=== PATIENT | female | born 1960 | race Caucasian/White ===

== ENCOUNTER → 2017-10-15 | Day surgery (SDC) | payer OTHER ==
[~2017-10-15] MED LIST: BELLADONNA/OPIUM 60 MG SUPP PR ONE; CEFTRIAXONE SOD 1 GM VIAL ONE; DEXAMETHASONE SOD PHOS INJ 4 MG/ML VIAL ONE; DOCUSATE SODIU100 MG PO; FAMOTIDINE20 MG PO; FENTANYL CITRATE/PF 100MCG/2 ML INJ ONE; FERROUS SULFAT325 MG PO; FOLIC ACID1 MG PO; GENTAMICIN 80MG/NS IV ONE; IOPAMIDOL 610MG/1ML 300 MG/ML VIAL IV ONE; LIDOCAINE HCL 2% LOCAL INJ 5 ML SDV VIAL INJ ONE; MIDAZOLAM HCL 2 MG/2 ML VIAL ONE; ONDANSETRON HCL INJ 2 MG/ML VIAL ONE; POTASSIUM CHLO10 ME1 PO; PROPOFOL IV EMULSION 10 MG/ML 20 ML VIAL ONE; SERTRALINE HCL50 MG PO; SEVOFLURANE INHAL SOLN 250 ML PEN BTL ONE; TRAZODONE HCL50 MG PO; VITAMIN B-121000 MCG IM; VITAMIN B-121000 MCG PO; VITAMIN C500 MG PO; VITAMIN D32000 UNI1 PO
[2017-10-15 10:57] LABS: BASOPHILS % 0.6 % (0.0-1.0); EOSINOPHILS # (AUTO) 0.3 (0.0-0.4); HEMATOCRIT 40.7 % (34.2-44.1); HEMOGLOBIN 13.6 g/dL (12.0-16.0); LYMPHOCYTES # (AUTO) 1.1 (1.0-3.2); LYMPHOCYTES % 17.3 % (18.0-39.1); MEAN CORPUSCULAR HGB CONC 33.4 g/dL (31-35); MEAN CORPUSCULAR VOLUME 92.7 fL (81-99); MONOCYTES # (AUTO) 0.6 (0.2-0.8); MONOCYTES % 9.1 % (4.4-11.3); NEUTROPHILS # (AUTO) 4.4 (2.1-6.9); NEUTROPHILS % 68.7 % (38.7-80.0); PLATELET COUNT 296 x10e3/uL (140-360); RED BLOOD COUNT 4.39 x10e6/uL (3.6-5.1); RED CELL DISTRIBUTION WIDTH 14.1 % (11.7-14.4)
[2017-10-15 11:16] LABS: ALANINE AMINOTRANSFERASE 12 IU/L (0-55); ALBUMIN 3.4 g/dL (3.5-5.0); ALBUMIN/GLOBULIN RATIO 1.1 (0.8-2.0); ALKALINE PHOSPHATASE 93 IU/L (40-150); ANION GAP 12.8 mmol/L (8-16); BLOOD UREA NITROGEN 19 mg/dL (7-26); BUN/CREATININE RATIO 27 (6-25); CARBON DIOXIDE 25 mmol/L (22-29); CHLORIDE 109 mmol/L (98-107); CREATININE, SERUM 0.71 mg/dL (0.57-1.11); EST GLOMERULAR FILTRATION RATE > 60 ML/MIN (60-); GLUCOSE 88 mg/dL (74-118); POTASSIUM 3.8 mmol/L (3.5-5.1); SODIUM 143 mmol/L (136-145)
--- NOTE | 2017-11-20 05:03 | Operative Report ---
DATE OF PROCEDURE: October 15, 2017 PREOPERATIVE DIAGNOSES 1. Left ureterolithiasis. 2. Left nephrolithiasis. 3. Left indwelling ureteral stent. POSTOPERATIVE DIAGNOSES 1. Left ureterolithiasis. 2. Left nephrolithiasis. 3. Left indwelling ureteral stent. 4. Grade 2 cystocele. 5. Grade 2 rectocele. 6. Urethral hypermobility. 7. Atrophic (senile) vaginitis. OPERATIONS PERFORMED: Note these are all staged procedures as part of a multistage, multistep process of managing the patient's urolithiasis. 1. Cystourethroscopy with complicated removal of left indwelling ureteral stent (separate procedure performed with separate scope for the diagnosis of the stent). 2. Left ureteroscopy with stone manipulation (separate procedure performed for the ureteral stone). 3. Left ureteroscopy with stone manipulation (separate procedure performed for the renal stones). 4. Radiological services for supervision and interpretation of ureteroscopy. 5. Interpretation of retrograde ureteropyelography. 6. Supervision of fluoroscopy. No radiologist present. 7. Pelvic examination under anesthesia. ANESTHESIA: General. COMPLICATIONS: None. CLINICAL SUMMARY: Dejah Epstein is a 57-year-old woman with nephrolithiasis. She underwent ESWL and stent placement. She is brought to the operating room for the above procedures. She is aware of the risks of bleeding, infection, injury to adjacent structures, need for additional procedures, and elected to proceed. OPERATIVE PROCEDURE IN DETAIL: Informed consent was verified. Dejah Epstein was properly identified and taken to the operating room and placed on the cystoscopy table in the supine position. Anesthesia was uneventfully begun. The patient was then carefully and gently repositioned in the dorsal lithotomy position with all pressure points well-padded. Her genitalia were prepared and draped in the usual sterile fashion. The 22.5-Polish cystoscope sheath with the obturator in place was atraumatically inserted in the patient's urethra and the bladder was drained. Panendoscopy of the urinary bladder revealed no suspicious mucosal lesions. No tumors. No stones and no diverticula. The patient's stent was noted to be emerging from the left ureteral orifice and was somewhat encrusted. A guidewire was then placed along side the stent and guided to the level of the patient's kidneys. The stent was then grasped, completed removed and discarded. A semi-rigid ureteroscope was then placed along side the guidewire up into the left ureter where I identified a stone. The stone was grasped with a Nitinol tipless basket and extracted. Flexible ureteroscope was then placed over the guidewire and guided to the level of the patient's kidney. We identified stones within the kidney. A large piece of stone was grasped with the Nitinol tipless basket and atraumatically extracted. We reinserted the ureteroscope over a guidewire and performed additional ureteroscopy to make sure the patient did not have any significantly sized stones remaining. There were no suspicious lesions. There were no tumors. There were no ureteral strictures. Interpretation of retrograde ureteropyelography. Contrast was instilled in a retrograde fashion on the left hand side. There was chronic appearing fullness of the collecting system on the left hand side as one would anticipate with a stent in place. There was no extravasation. Some caliceal blunting was appreciated. Unobstructed drainage was observed fluoroscopically. The patient's bladder was then drained. Cystoscope was withdrawn. Pelvic examination under anesthesia revealed a grade 2 cystocele, grade 2 rectocele, urethral hypermobility was noted and atrophic (senile) vaginitis was also noted. The patient was uneventfully reversed from anesthesia and taken to the recovery room in stable condition. Explicit postoperative instructions were given. Will follow the patient up in the office. Job#: [id number]
== END | disposition home or self-care (01) ==
LOC: OR 10:09
PROVIDERS: ATTEND Urology
DX: N20.1 Calculus of ureter (principal); N20.0 Calculus of kidney; N35.9 Urethral stricture, unspecified; Z46.6 Encounter for fitting and adjustment of urinary device; Z96.0 Presence of urogenital implants; N39.46 Mixed incontinence; N32.81 Overactive bladder; N36.41 Hypermobility of urethra; N81.10 Cystocele, unspecified; N81.6 Rectocele; N95.2 Postmenopausal atrophic vaginitis; K25.9 Gastric ulcer, unspecified as acute or chronic, without hemorrhage or perforation; I45.10 Unspecified right bundle-branch block; G47.33 Obstructive sleep apnea (adult) (pediatric); I83.90 Asymptomatic varicose veins of unspecified lower extremity; E66.9 Obesity, unspecified; D64.9 Anemia, unspecified; F41.9 Anxiety disorder, unspecified; Z68.35 Body mass index [BMI] 35.0-35.9, adult; Z87.891 Personal history of nicotine dependence; Z84.1 Family history of disorders of kidney and ureter
CPT/HCPCS: 36415; 52352; 74420; 80053; 83970; 84550; 85025; 87086; 87186; 88300; J0696; J1100; J1580; J2001; J2250; J2405; Q9967

== ENCOUNTER → 2018-02-16 | Outpatient (CLI) | payer OTHER ==
[~2018-02-16] MED LIST changes: -BELLADONNA/OPIUM 60 MG SUPP PR ONE; -CEFTRIAXONE SOD 1 GM VIAL ONE; -DEXAMETHASONE SOD PHOS INJ 4 MG/ML VIAL ONE; -FENTANYL CITRATE/PF 100MCG/2 ML INJ ONE; -GENTAMICIN 80MG/NS IV ONE; -IOPAMIDOL 610MG/1ML 300 MG/ML VIAL IV ONE; -LIDOCAINE HCL 2% LOCAL INJ 5 ML SDV VIAL INJ ONE; -MIDAZOLAM HCL 2 MG/2 ML VIAL ONE; -ONDANSETRON HCL INJ 2 MG/ML VIAL ONE; -PROPOFOL IV EMULSION 10 MG/ML 20 ML VIAL ONE; -SEVOFLURANE INHAL SOLN 250 ML PEN BTL ONE
--- NOTE | 2018-02-16 14:54 | Diagnostic Imaging Report ---
PROCEDURE:X-RAY ABDOMEN - KUB COMPARISON:CT 07/16/2017, KUB 08/29/2017 INDICATIONS:FOLLOW UP KIDNEY STONES FINDINGS: A punctate 0.2 cm calcification overlies the mid aspect of the left renal silhouette. The previous 1.1 cm triangular shaped calculus is currently not well visualized. There are no calcifications projected over the expected course of the ureters or bladder. Stable phleboliths in the pelvis. There is a non-obstructed bowel-gas pattern. There are no acute osseous abnormalities. Sutures project over the epigastric region related to gastric bypass. Surgical clips project over the right upper quadrant. CONCLUSION: Punctate 0.2 cm calcification projecting over the left kidney likely represents a renal calculus. Dictated by: Gab Yap M.D. on 02/16/2018 at 14:55 Electronically approved by: Gab Yap M.D. on 02/16/2018 at 14:55
== END ==
LOC: RAD 14:06
PROVIDERS: ATTEND Urology
DX: N20.0 Calculus of kidney (principal)
CPT/HCPCS: 74018

== ENCOUNTER → 2018-08-25 | Outpatient (CLI) | payer OTHER ==
--- NOTE | 2018-08-25 13:41 | Diagnostic Imaging Report ---
EXAM: Abdomen 2 Views INDICATION: Renal calculus COMPARISON: KUB and renal ultrasound 06/18/17. FINDINGS: There is a 1.1 cm calcification overlying the left mid pole kidney. Three calcifications measuring 3 mm each project over the left upper, mid, and lower pole kidney. Bowel gas obscures visualization of the right kidney. No definite stone overlying the expected location of the ureters. Surgical clips project over the right upper quadrant. Non-obstructive bowel gas pattern. Moderate degenerative changes of the lumbar spine and pelvis. Levoconvex curvature of the lumbar spine. IMPRESSION: A 1.1 cm calcification overlying the left mid pole kidney, consistent with known stone. Additional 3 mm left renal stones. Signed by: Dr. Davis Bullard MD on 08/25/2018 1:38 PM
== END ==
LOC: RAD 12:49
PROVIDERS: ATTEND Urology
DX: N20.0 Calculus of kidney (principal)
CPT/HCPCS: 74018

== ENCOUNTER → 2019-04-14 | Outpatient (CLI) | payer OTHER ==
--- NOTE | 2019-04-14 17:17 | Diagnostic Imaging Report ---
Abdomen, 2 views. History: History of renal stones. Findings: Clips in the right upper quadrant of the abdomen. The intestinal gas pattern is nonobstructive. There no masses or abnormal calcifications. There is a large amount of fecal material within the colon which obscures detail involving the kidneys. Extensive degenerative change of the spine with disc space narrowing, osteophytosis and scoliosis. Transitional L6 vertebral body. IMPRESSION: No acute abdominal abnormality. No definite calcified ureteral or renal stones. Signed by: Dr. Isac Taylor DO on 04/14/2019 5:14 PM
== END ==
LOC: RAD 15:51
PROVIDERS: ATTEND Urology
DX: N20.0 Calculus of kidney (principal)
CPT/HCPCS: 74018

== ENCOUNTER → 2019-05-07 | Outpatient (CLI) | payer OTHER ==
[~2019-05-07] MED LIST changes: +HYDROCHLOROTH12.5 MG PO; +PRILOSEC10 M1 PO
--- NOTE | 2019-05-07 14:54 | Diagnostic Imaging Report ---
PROCEDURE: CT ABDOMEN AND PELVIS WITHOUT CONTRAST TECHNIQUE: The abdomen and pelvis were scanned utilizing a multidetector helical scanner from the diaphragm to the lesser trochanter. No oral or intravenous contrast was administered per renal stone protocol. Coronal and sagittal multiplanar reformations were obtained. COMPARISON: 07/16/2017 INDICATIONS: LEFT FLANK PAIN, HX RENAL STONES FINDINGS: ABSENCE OF INTRAVENOUS CONTRAST DECREASES SENSITIVITY FOR DETECTION OF FOCAL LESIONS AND VASCULAR PATHOLOGY. LOWER THORAX: Subsegmental atelectasis in the dependent lower lobes. No pleural or pericardial effusion. HEPATOBILIARY: No focal hepatic lesion. Mild intrahepatic biliary dilatation status post cholecystectomy. SPLEEN: No splenomegaly. PANCREAS: No focal masses or ductal dilatation. ADRENALS: No adrenal nodules. KIDNEYS/URETERS: Interval development of marked left hydronephrosis and hydroureter G-tube migration of a 0.7 cm calculus from the upper collecting system to the ureterovesical junction as seen on series 3 image 155. 3-4 mm left upper pole and punctate left interpolar calculi are unchanged. A residual 7 mm calculus remains in the left lower pole collecting system as seen on series 3 image 79. No right renal or ureteral calculi. PELVIC ORGANS/BLADDER: Urinary bladder is unremarkable. Calcified, degenerated fibroid at the uterine fundus. No adnexal mass. PERITONEUM / RETROPERITONEUM: No ascites or pneumoperitoneum. LYMPH NODES: No pelvic sidewall, retroperitoneal, or mesenteric lymphadenopathy. VESSELS: Limited evaluation without intravenous contrast. The abdominal aorta is non-aneurysmal. GI TRACT: The large bowel is notable for innumerable sigmoid and descending colon diverticula without wall thickening or adjacent inflammatory change. The appendix is normal. Postsurgical changes of gastric bypass. No findings of small bowel obstruction. BONES AND SOFT TISSUES: Postsurgical changes related to mesh repair of ventral abdominal wall hernia, without recurrence or residual hernia defect. No additional focal soft tissue abnormalities. No osseous destructive lesions. Multilevel degenerative disc changes of the lumbar spine. IMPRESSION: Interval migration of a 7 mm left renal calculus from the upper collecting system to the ureterovesical junction, resulting in severe hydroureteronephrosis. Additional nonobstructing left renal calculi as above. Interval cholecystectomy with mild biliary dilatation likely related to reservoir effect. Correlate with serum bilirubin. Additional findings include large bowel diverticulosis without evidence of diverticulitis and atherosclerotic vascular disease. Dictated by: Seymour Pichardo M.D. on 05/07/2019 at 14:57 Electronically approved by: Seymour Pichardo M.D. on 05/07/2019 at 14:57
== END ==
LOC: CT 13:21
PROVIDERS: ATTEND Urology
DX: N20.0 Calculus of kidney (principal)
CPT/HCPCS: 74176

== ENCOUNTER → 2019-05-29 | Day surgery (SDC) | payer OTHER ==
[2019-05-25 15:55] LABS: BASOPHILS # (AUTO) 0.1 (0.0-0.1); BASOPHILS % 0.8 % (0.0-1.0); EOSINOPHILS # (AUTO) 0.3 (0.0-0.4); EOSINOPHILS % 3.9 % (0.0-6.0); HEMATOCRIT 41.2 % (34.2-44.1); HEMOGLOBIN 13.3 g/dL (12.0-16.0); LYMPHOCYTES # (AUTO) 1.5 (1.0-3.2); MEAN CORPUSCULAR HEMOGLOBIN 30.6 pg (28-32); MEAN CORPUSCULAR HGB CONC 32.3 g/dL (31-35); MEAN CORPUSCULAR VOLUME 94.9 fL (81-99); MONOCYTES # (AUTO) 0.4 (0.2-0.8); MONOCYTES % 6.2 % (4.4-11.3); NEUTROPHILS # (AUTO) 4.2 (2.1-6.9); NEUTROPHILS % 65.8 % (38.7-80.0); PLATELET COUNT 252 x10e3/uL (140-360); RED BLOOD COUNT 4.34 x10e6/uL (3.6-5.1); RED CELL DISTRIBUTION WIDTH 14.5 % (11.7-14.4)
[2019-05-25 16:15] LABS: ALANINE AMINOTRANSFERASE 12 IU/L (0-55); ALBUMIN 3.5 g/dL (3.5-5.0); ALBUMIN/GLOBULIN RATIO 1.2 (0.8-2.0); ALKALINE PHOSPHATASE 86 IU/L (40-150); ANION GAP 12.1 mmol/L (8-16); BLOOD UREA NITROGEN 18 mg/dL (7-26); BUN/CREATININE RATIO 22 (6-25); CALCIUM 9.5 mg/dL (8.4-10.2); CARBON DIOXIDE 28 mmol/L (22-29); CHLORIDE 104 mmol/L (98-107); CREATININE, SERUM 0.83 mg/dL (0.57-1.11); EST GLOMERULAR FILTRATION RATE > 60 ML/MIN (60-); GLUCOSE 119 mg/dL (74-118); POTASSIUM 4.1 mmol/L (3.5-5.1); SODIUM 140 mmol/L (136-145)
--- NOTE | 2019-05-25 16:40 | Diagnostic Imaging Report ---
EXAMINATION: CHEST 2 VIEWS INDICATION: Pre-operative COMPARISON: None FINDINGS: TUBES and LINES: None. LUNGS: The lungs are well-inflated. No focal consolidation or pulmonary edema. Linear subsegmental atelectasis at the left lung base. PLEURA: No pleural effusion or pneumothorax. HEART AND MEDIASTINUM: The cardiomediastinal silhouette is normal in size and contour. BONES AND SOFT TISSUES: No acute fracture or dislocation. UPPER ABDOMEN: No free air under the diaphragm. IMPRESSION: No focal pneumonia or pulmonary edema. Signed by: Rehan Green MD on 05/25/2019 4:36 PM
[~2019-05-29] MED LIST changes: +B&O 60MG R/S 60 MG SUPP PR ONE; +CEFTRIAXONE SOD 1 GM/NS 50 ML 50 ML IV ONE; +DEXAMETHASONE SOD PHOS INJ 4 MG/ML VIAL ONE; +FENTANYL CITRATE/PF 100MCG/2 ML INJ ONE; +IOPAMIDOL 610MG/1ML 300 MG/ML VIAL IV ONE; +LIDOCAINE HCL 2% LOCAL INJ 5 ML SDV VIAL INJ ONE; +METOCLOPRAMIDE HCL 10 MG/2ML VIAL ONE; +MIDAZOLAM HCL 2 MG/2 ML VIAL ONE; +ONDANSETRON HCL INJ 2MG/ML 2ML 2 MG/ML VIAL ONE; +PROMETHAZINE HCL (IM) 25 MG/ML VIAL ONE; +PROPOFOL IV EMULSION 10 MG/ML 20 ML VIAL ONE; +SEVOFLURANE INHAL SOLN 250 ML PEN BTL ONE
--- NOTE | 2019-05-29 09:09 | Diagnostic Imaging Report ---
Exam: CT abdomen/pelvis 05/07/2019. Clinical History: Preoperative, cystoscopy. Comparison: CT abdomen/pelvis 05/07/2019. Findings: Bowel gas partially obscures visualization of the kidneys. Multiple left-sided renal calculi are better characterized on CT from 05/07/2019. There is a 4 mm calcification projecting over the left upper kidney. Multiple pelvic calcifications likely represent phleboliths. Nonobstructive bowel gas pattern. Moderate amount of stool in the colon. Surgical clips project over the right upper quadrant. No acute osseous abnormality. Impression: Bowel gas partially appears visualization of the kidneys. Multiple left-sided renal calculi are better characterized on prior CT. Signed by: Dr. Davis Bullard MD on 05/29/2019 9:05 AM
--- OUTSIDE RECORDS SUMMARY | 2019-05-29 10:42 | XMS REPORT ---
Author Author [facility] Address Unknown Phone Unavailable Care Team Providers Care Home Health Clinical Liaison Name Role Phone PATRICA HUBBARD Unavailable Unavailable Problems This patient has no known problems. Allergies, Adverse Reactions, Alerts This patient has no known allergies or adverse reactions. Medications This patient has no known medications. Results Test Description Test Time Test Comments Text Results Atomic Results Result Comments ABDOMEN-1VIEW ([facility]) 2019-05-29 09:02:00 [place] [address] Patient Name: LINDY GABRIEL MR #: [id number] : 1960 Age/Sex: 59/F Req #: [id number] Adm Physician: Ordered by: PATRICA HUBBARD MD Report #: [id number] Location: OR Room/Bed: Procedure: [id number] DX/ABDOMEN-1VIEW ([facility]) Exam Date: 05/29/19 Exam Time: 0839 REPORT STATUS: Signed Exam: CT abdomen/pelvis 05/07/2019. Clinical History: Preoperative, cystoscopy. Comparison: CT abdomen/pelvis 05/07/2019. Findings: Bowel gas partially obscures visualization of the kidneys. Multiple left-sided renal calculi are better characterized on CT from 05/07/2019. There is a 4 mm calcification projecting over the left upper kidney. Multiple pelvic calcifications likely represent phleboliths. Nonobstructive bowel gas pattern. Moderate amount of stool in the colon. Surgical clips project over the right upper quadrant. No acute osseous abnormality. Impression: Bowel gas partially appears visualization of the kidneys. Multiple left-sided renal calculi are better characterized on prior CT. Signed by: Dr. Ana Camacho MD on 05/29/2019 9:05 AM Dictated By: ANA CAMACHO MD 4 Transcribed By: NICK on 05/29/19904 COPY TO: PATRICA HUBBARD MD CHEST 2 VIEWS 2019-05-25 16:35:00 [place] [address] Patient Name: LINDY GABRIEL MR #: [id number] : 1960 Age/Sex: 59/F Req #: [id number] Adm Physician: Ordered by: PATRICA HUBBARD MD Report #: [id number] Location: OR Room/Bed: Procedure: [id number] DX/CHEST 2 VIEWS Exam Date: 05/25/19 Exam Time: 1540 REPORT STATUS: Signed EXAMINATION: CHEST 2 VIEWS INDICATION: Pre-operative COMPARISON: None FINDINGS: TUBES and LINES: None. LUNGS: The lungs are well-inflated. No focal consolidation or pulmonary edema. Linear subsegmental atelectasis at the left lung base. PLEURA: No pleural effusion or pneumothorax. HEART AND MEDIASTINUM: The cardiomediastinal silhouette is normal in size and contour. BONES AND SOFT TISSUES: No acute fracture or dislocation. UPPER ABDOMEN: No free air under the diaphragm. IMPRESSION: No focal pneumonia or pulmonary edema. Signed by: Zainab Erickson MD on 05/25/2019 4:36 PM Dictated By: ZAINAB ERICKSON MD 35 Transcribed By: NICK on 05/25/191635 COPY TO: PATRICA HUBBARD MD CT ABDOMEN/PELVIS WO 2019-05-07 14:57:00 [place] [address] Patient Name: LINDY GABRIEL MR #: [id number] : 1960 Age/Sex: 59/F Req #: [id number] Adm Physician: Ordered by: PATRICA HUBBARD MD Report #: [id number] Location: CT Room/Bed: Procedure: [id number] CT/CT ABDOMEN/PELVIS WO Exam Date: 05/07/19 Exam Time: 1400 REPORT STATUS: Signed PROCEDURE: CT ABDOMEN AND PELVIS WITHOUT CONTRAST TECHNIQUE: The abdomen and pelvis were scanned utilizing a multidetector helical scanner from the diaphragm to the lesser trochanter. No oral or intravenous contrast was administered per renal stone protocol. Coronal and sagittal multiplanar reformations were obtained. COMPARISON: 07/16/2017 INDICATIONS: LEFT FLANK PAIN, HX RENAL STONES FINDINGS: ABSENCE OF INTRAVENOUS CONTRAST DECREASES SENSITIVITY FOR DETECTION OF FOCAL LESIONS AND VASCULAR PATHOLOGY. LOWER THORAX: Subsegmental atelectasis in the dependent lower lobes. No pleural or pericardial effusion. HEPATOBILIARY: No focal hepatic lesion. Mild intrahepatic biliary dilatation status post cholecystectomy. SPLEEN: No splenomegaly. PANCREAS: No focal masses or ductal dilatation. ADRENALS: No adrenal nodules. KIDNEYS/URETERS: Interval development of marked left hydronephrosis and hydroureter G-tube migration of a 0.7 cm calculus from the upper collecting system to the ureterovesical junction as seen on series 3 image 155. 3-4 mm left upper pole and punctate left interpolar calculi are unchanged. A residual 7 mm calculus remains in the left lower pole collecting system as seen on series 3 image 79. No right renal or ureteral calculi. PELVIC ORGANS/BLADDER: Urinary bladder is unremarkable. Calcified, degenerated fibroid at the uterine fundus. No adnexal mass. PERITONEUM / RETROPERITONEUM: No ascites or pneumoperitoneum. LYMPH NODES: No pelvic sidewall, retroperitoneal, or mesenteric lymphadenopathy. VESSELS: Limited evaluation without intravenous contrast. The abdominal aorta is non- aneurysmal. GI TRACT: The large bowel is notable for innumerable sigmoid and descending colon diverticula without wall thickening or adjacent in flammatory change. The appendix is normal. Postsurgical changes of gastric bypass. No findings of small bowel obstruction. BONES AND SOFT TISSUES: Postsurgical changes related to mesh repair of ventral abdominal wall hernia, without recurrence or residual hernia defect. No additional focal soft tissue abnormalities. No osseous destructive lesions. Multilevel degenerative disc changes of the lumbar spine. IMPRESSION: Interval migration of a 7 mm left renal calculus from the upper collecting system to the ureterovesical junction, resulting in severe hydroureteronephrosis. Additional nonobstructing left renal calculi as above. Interval cholecystectomy with mild biliary dilatation likely related to reservoir effect. Correlate with serum bilirubin. Additional findings include large bowel diverticulosis without evidence of diverticulitis and atherosclerotic vascular disease. Dictated by: Chai Segovia M.D. on 05/07/2019 at 14:57 Electronically approved by: Chai Segovia M.D. on 05/07/2019 at 14:57 Dictated By: CHAI SEGOVIA MD 1457 Transcribed By: SUSAN on 05/07/19 1457 COPY TO: PATRICA HUBBARD MD ABDOMEN-1VIEW ([facility]) 2019-04-14 17:09:00 [place] [address] Patient Name: LINDY GABRIEL MR #: [id number] : 1960 Age/Sex: 59/F Req #: [id number] Adm Physician: Ordered by: PATRICA HUBBARD MD Report #: [id number] Location: [facility] Room/Bed: Procedure: [id number] DX/ABDOMEN-1VIEW ([facility]) Exam Date: 04/14/19 Exam Time: 1623 REPORT STATUS: Signed Abdomen, 2 views. History: History of renal stones. Findings: Clips in the right upper quadrant of the abdomen. The intestinal gas pattern is nonobstructive. There no masses or abnormal calcifications. There is a large amount of fecal material within the colon which obscures detail involving the kidneys. Extensive degenerative change of the spine with disc space narrowing, osteophytosis and scoliosis. Transitional L6 vertebral body. IMPRESSION: No acute abdominal abnormality. No definite calcified ureteral or renal stones. Signed by: Dr. Isac Taylor DO on 04/14/2019 5:14 PM Dictated By: ISAC TAYLOR DO 13 Transcribed By: NICK on 04/14/191713 COPY TO: PATRICA HUBBARD MD ABDOMEN-1VIEW ([facility]) 2018-08-25 13:31:00 [place] [address] Patient Name: LINDY GABRIEL MR #: [id number] : 1960 Age/Sex: 58/F Req #: [id number] Adm Physician: Ordered by: PATRICA HUBBARD MD Report #: [id number] Location: [facility] Room/Bed: Procedure: [id number] DX/ABDOMEN-1VIEW ([facility]) Exam Date: 08/25/18 Exam Time: 1300 REPORT STATUS: Signed EXAM: Abdomen 2 Views INDICATION: Renal calculus COMPARISON: KUB and renal ultrasound 06/18/17. FINDINGS: There is a 1.1 cm calcification overlying the left mid pole kidney. Three calcifications measuring 3 mm each project over the left upper, mid, and lower pole kidney. Bowel gas obscures visualization of the right kidney. No definite stone overlying the expected location of the ureters. Surgical clips project over the right upper quadrant. Non-obstructive bowel gas pattern. Moderate degenerative changes of the lumbar spine and pelvis. Levoconvex curvature of the lumbar spine. IMPRESSION: A 1.1 cm calcification overlying the left mid pole kidney, consistent with known stone. Additional 3 mm left renal stones. Signed by: Dr. Ana Camacho MD on 08/25/2018 1:38 PM Dictated By: ANA CAMACHO MD 1338 Transcribed By: NICK on 08/25/18 1338 COPY TO: PATRICA HUBBARD MD ABDOMEN-1VIEW ([facility]) [place] [address] Patient Name: LINDY GABRIEL MR #: [id number] : 1960 Age/Sex: 58/F Req #: [id number] Adm Physician: Ordered by: PATRICA HUBBARD MD Report #: [id number] Location: [facility] Room/Bed: Procedure: [id number] DX/ABDOMEN-1VIEW ([facility]) Exam Date: 02/16/18 Exam Time: 1430 REPORT STATUS: Signed PROCEDURE: X-RAY ABDOMEN - KUB COMPARISON: CT 07/16/2017, KUB 08/29/2017 INDICATIONS: FOLLOW UP KIDNEY STONES FINDINGS: A punctate 0.2 cm calcification overlies the mid aspect of the left renal silhouette. The previous 1.1 cm triangular shaped calculus is currently not well visualized. There are no calcifications projected over the expected course of the ureters or bladder. Stable phleboliths in the pelvis. There is a non-obstructed bowel-gas pattern. There are no acute osseous abnormalities. Sutures project over the epigastric region related to gastric bypass. Surgical clips project over the right upper quadrant. CONCLUSION: Punctate 0.2 cm calcification projecting over the left kidney likely represents a renal calculus. Dictated by: Gab Cooper M.D. on 02/16/2018 at 14:55 Electronically approved by: Gab Cooper M.D. on 02/16/2018 at 14:55 Dictated By: GAB COOPER MD 1458 Transcribed By: SUSAN on 02/16/18 1451 COPY TO: PATRICA HUBBARD MD ABDOMEN-1VIEW ([facility]UB) [place] [address] Patient Name: LINDY GABRIEL MR #: [id number] : 1960 Age/Sex: 57/F Req #: [id number] Adm Physician: Ordered by: PATRICA HUBBARD MD Report #: [id number] Location: OR Room/Bed: Procedure: [id number] DX/ABDOMEN-1VIEW ([facility]) Exam Date: 08/29/17 Exam Time: 0608 REPORT STATUS: Signed PROCEDURE: ABDOMEN-1VIEW (K[facility]) TECHNIQUE: Supine AP abdomen INDICATION: Calculus of kidney COMPARISON: None. FINDINGS: See conclusion. CONCLUSION: 1. Calcification at the left inferior pole with ill-defined margins measuring up to 1 cm in diameter. 2. No calcifications over the right kidney or ureters. 3. Normal bowel gas pattern. 4. Multilevel degenerative disc disease. Dictated by: Bryson Brewer M.D. on 08/29/2017 at 7:32 Electronically approved by: Bryson Brewer M.D. on 08/29/2017 at 7:32 Dictated By: BRYSON BREWER MD 1 Transcribed By: SUSAN on 08/29/17731 COPY TO: PATRICA HUBBARD MD CT ABDOMEN/PELVIS WO [place] [address] Patient Name: LINDY GABRIEL MR #: [id number] : 1960 Age/Sex: 57/F Req #: [id number] Adm Physician: Ordered by: PATRICA HUBBARD MD Report #: [id number] Location: [place] Room/Bed: Procedure: [id number] CT/CT ABDOMEN/PELVIS WO Exam Date: 07/16/17 Exam Time: 1210 REPORT STATUS: Signed PROCEDURE: CT ABDOMEN AND PELVIS WITHOUT CONTRAST TECHNIQUE: The abdomen and pelvis were scanned utilizing a multidetector helical scanner from the diaphragm to the lesser trochanter after the oral administration of water. No IV contrast was administered per protocol. Coronal and sagittal multiplanar reformations were obtained. COMPARISON: None. INDICATIONS: CALCULUS OF KIDNEY FINDINGS: ABSENCE OF INTRAVENOUS CONTRAST DECREASES SENSITIVITY FOR DETECTION OF FOCAL LESIONS AND VASCULAR PATHOLOGY. LOWER THORAX: Linear opacities in the lingula, likely represent subsegmental atelectasis. HEPATOBILIARY: No focal hepatic lesions. No intrahepatic biliary ductal dilatation. Mild dilation of the common bile duct, which measures approximately 8 mm at the edel hepatis. No intraluminal filling defects. Gallbladder is unremarkable. SPLEEN: No splenomegaly. PANCREAS: No focal masses or ductal dilatation. ADRENALS: No adrenal nodules. KIDNEYS/URETERS: Right: No renal or ureteral calculi. No hydronephrosis or obstruction. No renal contour abnormalities or significant perinephric stranding. Left: Punctate and 0.4 cm nonobstructing calculi in the superior pole (series 3, images 62 and 64). 1.4 x 0.8 cm and 0.4 cm nonobstructing calculi in the interpolar region (series 3, image 76). Punctate, nonobstructing calculus in the inferior pole (series 3, image 84). No ureteral calculi. No hydronephrosis or obstruction. Cortical scarring in the interpolar region and inferior pole. No significant perinephric stranding. PELVIC ORGANS/BLADDER: Bladder is unremarkable. No adnexal masses. 1.4 cm partly calcified fibroid in the inferior aspect of the fundus. No adnexal masses.. PERITONEUM / RETROPERITONEUM: No free air or fluid. LYMPH NODES: No lymphadenopathy. VESSELS: Atherosclerotic calcification of the distal abdominal aorta. GI TRACT: No bowel dilation or evidence of obstruction. No pericolonic inflammatory changes. Appendix is well identified and normal in caliber. No acute bony abnormalities. BONES AND SOFT TISSUES: Degenerative disc changes in the lower thoracic and lumbosacral spine, worse at L2-L3, L3-L4, and L4-L5. Soft tissues are grossly unremarkable. IMPRESSION: 1. left nonobstructing calculi, as described. No ureteral calculi, hydronephrosis, or obstruction. 2. Mild dilation of the common bile duct. No radiopaque intraluminal filling defects are identified in the CBD or gallbladder. MRI, abdomen/MRCP may be obtained for further evaluation, if there is clinical concern for choledocholithiasis. Isael Sorto M.D. Dictated by: Isael Sorto M.D. on 07/16/2017 at 15:11 Electronically approved by: Isael Sorto M.D. on 07/16/2017 at 15:11 Dictated By: ISAEL SORTO MD 10 Transcribed By: SUSAN on 07/16/171510 COPY TO: PATRICA HUBBARD MD PARATHYROID IMAGING W SPECT [place] [address] Patient Name: LINDY GABRIEL MR #: [id number] : 1960 Age/Sex: 57/F Req #: [id number] Adm Physician: Ordered by: PATRICA HUBBARD MD Report #: [id number] Location: [place] Room/Bed: Procedure: NM/PARATHYROID IMAGING W SPECT Exam Date: Exam Time: REPORT STATUS: Signed Parathyroid Scan Reason for exam: Hyperparathyroidism Radiopharmaceutical: Tc-99m sestamibi 26 mCi After intravenous administration of the radiopharmaceutical, immediate and 2-hour planar images of the neck and upper chest were obtained. Tomographic images of the neck and upper chest were also obtained following the initial planar images. Distribution of tracer activity appears physiologic throughout the neck and up per chest on the planar and tomographic images. No focal areas of increased tracer accumulation are identified. On the delayed planar images, washout of tracer from the thyroid is complete with no focal areas of persistent tracer activity. Impression: No enlarged hypermetabolic parathyroid glands are identified. Signed by: Dr. Shalonda Vance M.D. on 07/16/2017 8:45 PM Dictated By: SHALONDA VANCE MD 44 Transcribed By: NICK on 07/16/172044 COPY TO: PATRICA HUBBARD MD
--- OUTSIDE RECORDS SUMMARY | 2019-05-29 10:42 | XMS REPORT | Clinical Summary ---
Author Author [facility] Address Unknown Phone Unavailable Care Team Providers Care Accounts Receivable Bookkeeper Name Role Phone Asked, No Pcp PCP Unavailable Allergies No Known Allergies Medications Not on file Active Problems Not on file Social History Date Tobacco Use Types Packs/Day Years Used Never Assessed Sex Assigned at Date Recorded Not on file Industry Job Start Date Occupation Not on file Not on file Not on file Travel End Travel History Travel Start No recent travel history available. Last Filed Vital Signs Not on file Plan of Treatment Not on file Results Not on fileafter 05/28/2018 Insurance Type Payer Benefit Subscriber ID Effective Phone Address Plan / Dates Group Exchange MARIO EXCHANGE MARIO xxxxxxxxxx [id number] [employer] E EXCHANGE Advance Directives Patient has advance care planning documents on file. For more information, olegario e contact: Buzz Browning [address] [place] [id number]
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
[2019-05-29 11:45] VITALS: BP 104/61
--- NOTE | 2019-07-29 06:12 | Operative Report ---
DATE OF PROCEDURE: 05/29/2019 SURGEON: Pranav Wilburn MD PREOPERATIVE DIAGNOSES: 1. Left ureterolithiasis. 2. Microhematuria. 3. Mixed-type urinary incontinence. POSTOPERATIVE DIAGNOSES: 1. Left ureterolithiasis. 2. Microhematuria. 3. Mixed-type urinary incontinence. 4. Urethral hypermobility. 5. Grade 2-3 cystocele. 6. Grade 2-3 rectocele. 7. Atrophic (senile) vaginitis. OPERATIONS PERFORMED: 1. Cystourethroscopy with bilateral ureteral catheterization and retrograde ureteropyelography (separate procedure performed for the microhematuria). 2. Interpretation of retrograde ureteropyelography. 3. Supervision of fluoroscopy, no radiologist present. 4. Left ureteroscopy with holmium laser lithotripsy and placement of stent (separate procedure performed for the ureterolithiasis with separate scope). 5. Numerous additional left ureteroscopy and stone manipulation procedures (separate procedure performed to remove multiple stones in the left ureter). 6. Radiological services for supervision and interpretation of ureteroscopy. 7. Pelvic examination under anesthesia. ANESTHESIA: General. COMPLICATIONS: None. CLINICAL SUMMARY: Dejah Epstein is a 59-year-old woman with left ureterolithiasis and hydronephrosis. She is brought for the above procedures. She is aware of the risks of bleeding, infection, injury to adjacent structures, need for additional procedures, and elected to proceed. OPERATIVE PROCEDURE IN DETAIL: Informed consent was verified. Dejah Epstein was properly identified and taken to the operating room, and placed in the operating table in supine position. Anesthesia was uneventfully begun. The patient was then carefully gently repositioned in the dorsal lithotomy position with all pressure points well padded. Her genitalia were prepared and draped in the usual sterile fashion. The cystoscope sheath was inserted into the patient's urethra with obturator in place and the patient's bladder was drained. Panendoscopy revealed no suspicious mucosal lesions, no tumors, no stones, no diverticula. Normally positioned and configured ureteral orifices were identified. Ureteral catheter was used to cannulate each ureter and retrograde ureteropyelogram was performed. A guidewire was then placed in the left ureter and guided to the level of the patient's kidney. A semi-rigid ureteroscope was then inserted alongside the guidewire and the ureter. We identified and inspected 7 mm stone with mucosal reaction around it. Holmium laser lithotripsy was performed in order to fragment the stone. Multiple passes were then made with a basket and atraumatically extracted one stone at the time, numerous stones were extracted with additional ureteroscopies. Once this was completed with cystoscopic and fluoroscopic guidance, a left-sided indwelling stent was then placed. It was coiled in the patient's kidney as well as the patient's bladder. The retaining suture was cut short. Interpretation of retrograde ureteropyelography contrast was instilled in retrograde fashion bilaterally. Right side was relatively unremarkable. There were no tumors, no stones, no diverticula. No suspicious lesions. Unobstructed drainage was observed. There was a bifid pelvis. The left side exhibited a filling defect corresponding to the 7 mm impacted stone. Proximally to that, there was a rather dramatic hydroureteronephrosis with severe ureteral tortuosity. At the end of the procedure, the stent was in good position and coiled in the patient's kidneys as well as the patient's bladder. The patient's bladder was drained. Cystoscope was withdrawn. Pelvic examination revealed urethral hypermobility. There was grade 2-3 cystocele, grade 2-3 rectocele, and atrophic vaginitis. This examination under anesthesia demonstrated the patient's cystorectocele was much worse than it was evaluated in the office. A belladonna and opium suppository was placed. The patient was uneventfully reversed from anesthesia and taken to recovery room in stable condition. There were no complications during the procedure. She tolerated procedure well. Explicit postoperative instructions were given. We will plan on returning the patient to the operating room in several weeks to remove her stent, perform a left ureteroscopy, and hopefully render the patient stent free and stone free at that time. Ongoing urological followup as well as metabolic stone workup was strongly encouraged with the patient. MD DAVE Mancini/SIMA /[id number]
== END | disposition home or self-care (01) ==
LOC: OR 06:25
PROVIDERS: ATTEND Urology
DX: N20.1 Calculus of ureter (principal); N13.30 Unspecified hydronephrosis; N13.8 Other obstructive and reflux uropathy; N39.46 Mixed incontinence; N36.41 Hypermobility of urethra; N81.10 Cystocele, unspecified; N81.6 Rectocele; N95.2 Postmenopausal atrophic vaginitis; Z01.810 Encounter for preprocedural cardiovascular examination; Z01.812 Encounter for preprocedural laboratory examination; Z01.818 Encounter for other preprocedural examination; Z87.891 Personal history of nicotine dependence
CPT/HCPCS: 36415; 52356; 71046; 74018; 74420; 80053; 83970; 84550; 85025; 87086; 88300; 93005; C2617; J0696; J1100; J2001; J2250; J2405; J2550; J2704; J2765; J3010; Q9967

== ENCOUNTER → 2019-06-25 | Day surgery (SDC) | payer OTHER ==
[~2019-06-25] MED LIST changes: +ACETAMINOPHEN 1000 MG/100 ML IV ONE; +EPHEDRINE SULFATE INJ 50 MG/10 ML SYR ONE; +FAMOTIDINE 20 MG/2 ML VIAL IV ONE; +SCOPOLAMINE 1.5 MG PATCH ONE
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
--- NOTE | 2019-06-25 13:10 | Diagnostic Imaging Report ---
Abdomen, 2 views. History: Preoperative evaluation Comparison: 04/14/2019 Findings: Cholecystectomy clips are seen in the right upper quadrant. There is been interval placement of a left ureteral double J stent. No definite abnormal calcifications are identified. The bowel gas pattern is nonobstructed. IMPRESSION: No definite calcified ureteral or renal stones. Double-J stent is in place on the left. Signed by: Silvestre Bourgeois MD on 06/25/2019 1:07 PM
[2019-06-25 17:30] VITALS: BP 110/61
--- NOTE | 2019-08-03 08:26 | Operative Report ---
DATE OF PROCEDURE: 06/25/2019 SURGEON: Pranav Wilburn MD PREOPERATIVE DIAGNOSES: 1. Left nephrolithiasis. 2. Left indwelling ureteral stents. POSTOPERATIVE DIAGNOSES: 1. Left nephrolithiasis. 2. Left indwelling ureteral stents. 3. Grade 2 cystocele. 4. Grade 3 rectocele. 5. Urethral hypermobility. 6. Atrophic (senile) vaginitis. OPERATIONS PERFORMED: 1. Cystourethroscopy with complicated removal of left indwelling ureteral stent (separate procedure performed for the diagnosis of stents). 2. Left semi-rigid ureteroscopy. 3. Left ureteroscopy with holmium laser lithotripsy (separate procedure performed for the left nephrolithiasis). 4. Radiological services for supervision and interpretation of ureteroscopy. 5. Interpretation of retrograde ureteropyelography. 6. Supervision of fluoroscopy, no radiologist present. 7. Pelvic examination under anesthesia. ANESTHESIA: General. COMPLICATIONS: None. CLINICAL SUMMARY: Dejah Epstein is a 59-year-old woman who had a prior left distal ureteral stone. The patient had a stent in place. She was brought to the operating room in hopes of rendering her stent free and stone free. She is aware of the risks of bleeding, infection, injury to adjacent structures, need for additional procedures and elected to proceed. OPERATIVE PROCEDURE IN DETAIL: Informed consent was verified. Dejah Epstein was properly identified, and taken to the operating room, placed on the cystoscopy table in supine position. Anesthesia was uneventfully begun. The patient was then carefully and gently repositioned in dorsal lithotomy position with all pressure points well padded. Her genitalia were prepared and draped in usual sterile fashion. A 22.5-Swedish cystoscope sheath with obturator in place was atraumatically inserted into the patient's urethra and the bladder was drained. Panendoscopy revealed no suspicious mucosal lesions, no tumors, no stones, and no diverticula. There was a stent emerging from the left ureteral orifice. A guidewire was then placed alongside the stent and guided to the level of the patient's kidney. The stent was then grasped, completely removed and discarded. Semi-rigid ureteroscope was then placed alongside the guidewire and guided into the patient's left ureter. The distal ureter was unremarkable. There were no tumors, no stones, and no diverticula. Contrast was injected. Flexible ureteroscope was then placed over the guidewire and guided to the level of the patient's kidney. Panendoscopy revealed a very distorted collecting system. We noted sand and small stones in the left upper aftab and left mid pole aftab. This stone burden was manipulated and stones were crushed with the basket. They were very soft stones. We then upon panendoscopy noted that the stone burden that was expected to be found in the left lower pole, it was indeed the just a collection of sand and no stones that was large enough to grasp was found. We vigorously irrigated, the sand was verified, no large stone remained in the patient's left kidney. We carefully re-examined the ureter, as we exited the ureter was unremarkable. Interpretation of retrograde ureteropyelography contrast was instilled in retrograde fashion on left stent side. Collecting system was extremely distorted. There was blown out hydronephrotic system. There was ureteral tortuosity of an extremely dilated ureter. This appears to be a chronic condition presumably from the patient's prior long-standing ureteral stone. Near the there is an interval unobstructed drainage fluoroscopically that was noted. The patient's bladder was drained. Cystoscope was withdrawn. Pelvic examination revealed a grade 2 cystocele, grade 3 rectocele. There was an atrophic vaginitis and urethral hypomobility. No abnormal palpable pelvic masses could be appreciated. There were no obvious mucosal lesions. The patient was then uneventfully reversed from anesthesia and taken to recovery room in stable condition. Explicit postop instructions were given. Plan will be to obtain a Lasix renogram in order to evaluate the differential function, scarring, and concerns about the functionality, long-term drainage of this left kidney. MD DAVE Mancini/SIMA /[id number]
== END | disposition home or self-care (01) ==
LOC: OR 11:24
PROVIDERS: ATTEND Urology
DX: N13.2 Hydronephrosis with renal and ureteral calculous obstruction (principal); R31.9 Hematuria, unspecified; N81.10 Cystocele, unspecified; N81.6 Rectocele; N36.41 Hypermobility of urethra; N95.2 Postmenopausal atrophic vaginitis
CPT/HCPCS: 52315; 52353; 74018; 74420; 87086; C1758; J0131; J0696; J1100; J2001; J2250; J2405; J2550; J2704; J2765; J3010; Q9967

== ENCOUNTER → 2019-09-08 | Outpatient (CLI) | payer OTHER ==
[~2019-09-08] MED LIST changes: -ACETAMINOPHEN 1000 MG/100 ML IV ONE; -B&O 60MG R/S 60 MG SUPP PR ONE; -CEFTRIAXONE SOD 1 GM/NS 50 ML 50 ML IV ONE; -DEXAMETHASONE SOD PHOS INJ 4 MG/ML VIAL ONE; -EPHEDRINE SULFATE INJ 50 MG/10 ML SYR ONE; -FAMOTIDINE 20 MG/2 ML VIAL IV ONE; -FENTANYL CITRATE/PF 100MCG/2 ML INJ ONE; +FUROSEMIDE INJ 10 MG/ML 4 ML VIAL ONE; -IOPAMIDOL 610MG/1ML 300 MG/ML VIAL IV ONE; -LIDOCAINE HCL 2% LOCAL INJ 5 ML SDV VIAL INJ ONE; -METOCLOPRAMIDE HCL 10 MG/2ML VIAL ONE; -MIDAZOLAM HCL 2 MG/2 ML VIAL ONE; -ONDANSETRON HCL INJ 2MG/ML 2ML 2 MG/ML VIAL ONE; -PROMETHAZINE HCL (IM) 25 MG/ML VIAL ONE; -PROPOFOL IV EMULSION 10 MG/ML 20 ML VIAL ONE; -SCOPOLAMINE 1.5 MG PATCH ONE; -SEVOFLURANE INHAL SOLN 250 ML PEN BTL ONE
--- NOTE | 2019-09-08 19:54 | Diagnostic Imaging Report ---
Renal Scan with Lasix Washout Clinical information: 59 F with renal calculi Technique: Following intravenous administration of 10 mCi of Tc-99m MAG3, dynamic images of the kidneys in the posterior projection were obtained through 22 minutes. Lasix 40 mg was administered intravenously at 10 minutes post injection of the tracer. Scan time reduced to 22 minutes as patient not able to tolerate full bladder any longer. Report: Left kidney: Perfusion of the left kidney is prompt. The overall size of the kidney is small. The kidney has a reniform shape with slightly irregular contours and patchy pattern of tracer throughout the renal parenchyma. Extraction of tracer from the blood pool is mildly decreased. Clearance of tracer from the renal parenchyma begins promptly but is not complete by the end of the study. The pelvicalyceal system is not dilated although very mild caliectasis is present throughout the kidney. A prominent calyx is present in the upper pole. Physiologic pooling of tracer is seen within the pelvicalyceal system. Drainage of tracer from the pelvicalyceal system is nearly adequate prior to administration of Lasix. Washout of tracer from the pelvicalyceal system following administration of Lasix is rapid with a T-1/2 of 4 minutes (normal less than 15 minutes). Stasis of tracer is seen in the left ureter although the ureter does not appear dilated and tracer clears rapidly following administration of Lasix. Right kidney: Perfusion of the right kidney is prompt. The overall size of the kidney is small. The kidney has a reniform shape with smooth contours. Extraction of tracer from the blood pool is mildly decreased. Clearance of tracer from the renal parenchyma begins promptly but is not complete by the end of the study. The pelvicalyceal system is not dilated. Physiologic pooling of tracer is seen within the pelvicalyceal system. Drainage of tracer from the pelvicalyceal system is adequate prior to administration of Lasix. No significant stasis of tracer is seen within the left ureter. Differential renal function: The left kidney contributes 55% of total renal function and the right kidney contributes 45% (normal 43-57%). Impression: 1. Scan evidence of medical renal disease in the left kidney. No hydronephrosis is present although very mild calicectasis is present. No physiologically significant obstruction of the renal collecting system is present. 2. Scan evidence of medical renal disease in the right kidney.. No hydronephrosis is present. No physiologically significant obstruction of the renal collecting system is present. 3. The differential renal function is preserved. Signed by: Dr. Marie Vance M.D. on 09/08/2019 7:50 PM
== END ==
LOC: NM 11:51
PROVIDERS: ATTEND Urology
DX: N20.0 Calculus of kidney (principal)
CPT/HCPCS: 78708; A9562; J1940

== ENCOUNTER → 2019-09-28 | Outpatient (CLI) | payer OTHER ==
[~2019-09-28] MED LIST changes: -FUROSEMIDE INJ 10 MG/ML 4 ML VIAL ONE
--- NOTE | 2019-09-28 15:02 | Diagnostic Imaging Report ---
Exam: KUB - 2 views Indication: Renal calculus Comparison: KUB of 06/25/2019 Findings: Interval removal of left internal nephroureteral stent. 4 mm left upper pole renal calculus. No other radiographically apparent renal calculi. Surgical clips project over the right upper quadrant. Nonobstructive bowel gas pattern. No free air. Phleboliths in the pelvis. Impression: Interval removal of left internal nephroureteral stent. 4 mm left upper pole renal calculus. Signed by: Rehan Green MD on 09/28/2019 2:59 PM
== END ==
LOC: RAD 12:51
PROVIDERS: ATTEND Urology
DX: N20.0 Calculus of kidney (principal)
CPT/HCPCS: 74018

== ENCOUNTER 2019-11-23 17:46 | Inpatient (IN) | payer OTHER ==
[~2019-11-23] VITALS: Ht 167.6 cm; Wt 90.7 kg
--- OUTSIDE RECORDS SUMMARY | 2019-11-23 17:50 | XMS REPORT ---
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 Gender identity: Female. Kiana Kevin " patient considered to be homeless No Linette Schmitz " drug use, illicit Never Linette Schmitz " alcohol use Currently Linette Schmitz " smoking status former smoker Linette Schmitz FUNCTIONAL STATUS No Information Available MENTAL STATUS Date Observation Value Provider assessment of mood and affect E&M pleasant Jackie Faye " mental status examination: orientation E&M oriented to time, place, and person Jackie Faye " assessment of judgment and insight E&M limited Jackie Faye " Generalized Anxiety Disorder Questionnaire - Question 2 0 Carolina Parrish " Generalized Anxiety Disorder Questionnaire - Question 1 0 Carolina Parrish assessment of judgment and insight E&M intact Chumarisela Coronado N[place] " mental status examination: orientation E&M oriented to time, place, and person Chumarisela Baptism [place] " assessment of mood and affect E&M no depression, anxiety, or agitation [place]ucand[place]andres Baptism [place] " Generalized Anxiety Disorder Questionnaire - Question 2 0 Gillian Chirinos " Generalized Anxiety Disorder Questionnaire - Question 1 0 Gillian Chirinos assessment of mood and affect E&M no depression, anxiety, or agitation Guparker Hardwick " Generalized Anxiety Disorder Questionnaire - Question 2 0 Latasha Hutchinson " Generalized Anxiety Disorder Questionnaire - Question 1 0 Latasha Hutchinson assessment of judgment and insight E&M intact Kiana Kevin " mental status examination: orientation E&M oriented to time, place, and person Kiana Kevin " assessment of mood and affect E&M no depression, anxiety, or agitation Kiana Kevin " Generalized Anxiety Disorder Questionnaire - Question 2 0 Suzanne Garrett " Generalized Anxiety Disorder Questionnaire - Question 1 0 Suzanne Garrett assessment of judgment and insight E&M intact Kiana Kevin " mental status examination: orientation E&M oriented to time, place, and person Kiana Kevin " assessment of mood and affect E&M no depression, anxiety, or agitation Kiana Kevin " Generalized Anxiety Disorder Questionnaire - Question 2 0 Rere Joseph " Generalized Anxiety Disorder Questionnaire - Question 1 0 Rere Joseph assessment of judgment and insight E&M intact Kiana Kevin " mental status examination: orientation E&M oriented to time, place, and person Kiana Kevin " assessment of mood and affect E&M no depression, anxiety, or agitation Kiana Kevin " Generalized Anxiety Disorder Questionnaire - Question 2 0 Suzanne Garrett " Generalized Anxiety Disorder Questionnaire - Question 1 0 Suzanne Garrett assessment of judgment and insight E&M intact Kiana Kevin " mental status examination: orientation E&M oriented to time, place, and person Kiana Kevin " assessment of mood and affect E&M anxious Kiana Kevin " Generalized Anxiety Disorder Questionnaire - Question 2 0 Valentinamarialuisa Gillilanda " Generalized Anxiety Disorder Questionnaire - Question 1 0 Valentina Leggett assessment of judgment and insight E&M intact Justo Hi " mental status examination: orientation E&M oriented to time, place, and person Justo Hi " assessment of mood and affect E&M anxious Justo Hi " Generalized Anxiety Disorder Questionnaire - Question 2 0 Veronica De Dios " Generalized Anxiety Disorder Questionnaire - Question 1 0 Veronica De Dios mental status examination: orientation E&M oriented to time, place, and person Tk Khalid " assessment of mood and affect E&M anxious Tk Khalid " Generalized Anxiety Disorder Questionnaire - Question 2 0 Fina Hollins " Generalized Anxiety Disorder Questionnaire - Question 1 0 Fina Hollins assessment of judgment and insight E&M intact Justo Hi " mental status examination: orientation E&M oriented to time, place, and person Justo Hi " assessment of mood and affect E&M no depression, anxiety, or agitation Justo Hi assessment of judgment and insight E&M intact Kiana Kevin " mental status examination: orientation E&M oriented to time, place, and person Kiana Kevin " assessment of mood and affect E&M no depression, anxiety, or agitation Ikana Kevin Generalized Anxiety Disorder Questionnaire - Question 2 0 Fina Hollins " Generalized Anxiety Disorder Questionnaire - Question 1 0 Fina Hollins Generalized Anxiety Disorder Questionnaire - Question 2 0 Rere Joseph " Generalized Anxiety Disorder Questionnaire - Question 1 0 Rere Joseph Generalized Anxiety Disorder Questionnaire - Question 2 0 Linette Estrella " Generalized Anxiety Disorder Questionnaire - Question 1 0 Linette Estrella assessment of judgment and insight E&M intact Kiana Kevin " mental status examination: orientation E&M oriented to time, place, and person Kiana Kevin " assessment of mood and affect E&M no depression, anxiety, or agitation Kiana Kevin " Generalized Anxiety Disorder Questionnaire - Question 2 0 Suzanne Tami " Generalized Anxiety Disorder Questionnaire - Question 1 0 Suzanne Garrett assessment of mood and affect E&M talks a lot Kiana Kevin " assessment of judgment and insight E&M intact Kiana Kevin " mental status examination: orientation E&M oriented to time, place, and person Kiana Kevin " If any problems checked, how difficult have these problems made it for you to do your work, take care of things at home, or get along with other people (GAD7, question 8) 0 Valentina Leggett " Generalized Anxiety Disorder Questionnaire - Question 7 0 Valentina Leggett " Generalized Anxiety Disorder Questionnaire - Question 6 1 Valentina Leggett " Generalized Anxiety Disorder Questionnaire - Question 5 0 Valentina Leggett " Generalized Anxiety Disorder Questionnaire - Question 4 2 Valentina Leggett " Generalized Anxiety Disorder Questionnaire - Question 3 2 Valentina Leggett " Generalized Anxiety Disorder Questionnaire - Question 2 0 Rere Joseph " Generalized Anxiety Disorder Questionnaire - Question 1 0 Rere Joseph assessment of judgment and insight E&M intact Kiana Kevin " mental status examination: orientation E&M oriented to time, place, and person Kiana Kevin " assessment of mood and affect E&M no depression, anxiety, or agitation Kiana Kevin " Generalized Anxiety Disorder Questionnaire - Question 2 0 Linette Schmitz " Generalized Anxiety Disorder Questionnaire - Question 1 0 Linette Schmitz MEDICAL EQUIPMENT No Information Available FAMILY HISTORY No Information Available INSURANCE PROVIDERS No Information Available ADVANCE DIRECTIVES No Information Available TREATMENT PLAN Date Name FIT- Fecal immunoassay test Iron, Serum CBC With Differential/Platelet Lipid Panel CBC With Differential/Platelet Lipid Panel Hemoglobin A1c RPR HIV 1/2 ANTIGEN/ANTIBODY, FOURTH GENERATION W/RFL HCV Antibody HBsAg Screen Chlamydia/GC Amplification FIT- Fecal immunoassay test Pap w/HPV w rflx (30+) - Reason for referral: 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 Dianna Kaur (screening colonoscopy) - - - - - - - - - - Est Patient Exp Problem - 78618 Est Patient Exp Problem - 04262 Est Patient Exp Problem - 93406 Zoster - Shingles Est Patient Well Exam (40 - 64 Yrs) - 56968 Est Patient Exp Problem - 22345 Est Patient Exp Problem - 59265 Est Patient Detailed - 30399 Est Patient Exp Problem - 87299 Est Patient Exp Problem - 36352 Est Patient Exp Problem - 22487 TDAP Est Patient Well Exam (40 - 64 Yrs) - 37077 Est Patient Exp Problem - 17726 Est Patient Detailed - 35495 Est Patient Exp Problem - 81924 New Patient Exp Problem - 78360 HISTORY OF PROCEDURES No Information Available GOALS No Information Available HEALTH CONCERNS No Information Available
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
[2019-11-23] MEDS ORDERED: SODIUM CHLORIDE 0.9% 1000ML 1,000 ML IV STA (18:10)
[2019-11-23] MEDS ORDERED: ONDANSETRON HCL INJ 2MG/ML 2ML 2 MG/ML VIAL IV NR (18:15)
[2019-11-23] MEDS ORDERED: KETOROLAC TROMETHAMINE 30 MG/ML VIAL IV NR (18:30)
[2019-11-23] MEDS ORDERED: MORPHINE SULFATE 2 MG/ML SYR 1ML IV NR (18:30)
[2019-11-23 19:09] LABS: BASOPHILS # (AUTO) 0.1 (0.0-0.1); BASOPHILS % 0.4 % (0.0-1.0); EOSINOPHILS # (AUTO) 0.1 (0.0-0.4); EOSINOPHILS % 0.3 % (0.0-6.0); HEMATOCRIT 43.4 % (34.2-44.1); HEMOGLOBIN 14.3 g/dL (12.0-16.0); LYMPHOCYTES # (AUTO) 0.6 (1.0-3.2); LYMPHOCYTES % 4.1 % (18.0-39.1); MEAN CORPUSCULAR HEMOGLOBIN 30.6 pg (28-32); MEAN CORPUSCULAR HGB CONC 32.9 g/dL (31-35); MEAN CORPUSCULAR VOLUME 92.7 fL (81-99); MONOCYTES % 6.8 % (4.4-11.3); NEUTROPHILS # (AUTO) 12.8 (2.1-6.9); NEUTROPHILS % 88.1 % (38.7-80.0); PLATELET COUNT 309 x10e3/uL (140-360); RED BLOOD COUNT 4.68 x10e6/uL (3.6-5.1); RED CELL DISTRIBUTION WIDTH 13.6 % (11.7-14.4)
[2019-11-23 19:15] LABS: CLARITY,URINE SL CLOUDY (CLEAR); COLOR,URINE YELLOW (YELLOW)
[2019-11-23 19:16] LABS: LEUKOCYTE ESTERASE ,URINE TRACE (NEGATIVE); NITRITE,URINE NEGATIVE (NEGATIVE); PROTEIN,URINE DIPSTICK 1+ (NEGATIVE)
[2019-11-23 19:17] LABS: BILIRUBIN,URINE SMALL (NEGATIVE); KETONES,URINE 2+ (NEGATIVE); URINE UROBILINOGEN 0.2 mg/dL (0.2 - 1)
[2019-11-23 19:22] LABS: BACTERIA,URINE FEW /HPF; EPITHELIAL CELLS,URINE FEW /LPF; INR 0.91; PARTIAL THROMBOPLASTIN TIME 30.9 seconds (23.8-35.5); PROTHROMBIN TIME 12.7 seconds (11.9-14.5); WBC,URINE (MAN) >50 /HPF (0-5)
--- NOTE | 2019-11-23 19:23 | Diagnostic Imaging Report ---
CT Abdomen and Pelvis without contrast INDICATION: Left flank pain, ^Stone Protocol ^Y TECHNIQUE: Thin collimation axial images obtained from the diaphragm to the level of the pubic symphysis without nonionic intravenous contrast. Dose reduction techniques used: Automated exposure control, adjustment of the mAs and/or kVp according to patient size, standardized low-dose protocol, and/or iterative reconstruction technique. RADIATION DOSE: Total DLP: 752.9 mGy*cm Estimated effective dose: (DLP x 0.015 x size factor) mSv CTDIvol has been reviewed. It is below the limits set by the Radiation Protocol Committee (RPC). COMPARISON: Abdomen x-ray 09/28/2019. ABDOMEN FINDINGS: Lung Bases: Mild air trapping suggestive of small airways disease. Trace bibasilar atelectasis/scarring. The heart is normal in size. There is a tiny hiatal hernia Liver: Normal in attenuation without mass. Gallbladder: Absent. No intrahepatic biliary ductal dilatation. The common bile duct measures 12 mm in diameter with squared shoulders at the ampulla. No intraluminal filling defects. Pancreas: Normal attenuation without mass. Spleen: Normal size without mass. Adrenal Glands: No evidence for mass. Kidneys/ureters: Right: Partially duplicated collecting system. Punctate posterior interpolar calculus. No collecting system dilatation or perinephric inflammation. The ureter is not dilated. There is a tiny 3 mm calculus in the distal ureter at the J-hook. Left: Edematous with mild perinephric inflammation. There are several intrarenal calculi measuring up to 3 mm. The entire collecting system and ureter are dilated. The mid ureter measures 22 mm in diameter. Multiple calculi in the distal ureter have an overall size of 7 x 17 mm. Lymph Nodes: No lymphadenopathy. Aorta: Normal in diameter with scattered calcifications PELVIS FINDINGS: Bowel: Stomach: Postoperative changes from Randi-en-Y bypass. There is a small amount of fluid in the excluded stomach. Small Bowel: Normal in caliber with normal wall thickness. Large Bowel: Diverticulosis coli. No associated inflammation. Appendix: Normal. Bladder: Under distended. No intraluminal calculi. Uterus: Present and contains multiple calcified fibroids. No adnexal mass Peritoneum/retroperitoneum: No free fluid or fluid collection. Bones: Degenerative changes of the lower lumbar spine superimposed on levoscoliosis. No compression fractures or listhesis. IMPRESSION: 1. Multiple obstructing calculi in the left distal ureter resulting in marked hydroureteronephrosis. 2. Bilateral intrarenal calculi, left kidney more so than the right. 3. Postoperative changes of the stomach and small bowel without obstruction. Status post cholecystectomy with common bile duct dilatation, possibly the result of reservoir effect. 4. Diverticulosis coli. No evidence for bowel obstruction or inflammation. Normal appendix. Signed by: Dr. Faustino Gabriel MD on 11/23/2019 7:20 PM
[2019-11-23 19:34] LABS: ALANINE AMINOTRANSFERASE 11 IU/L (0-55); ALBUMIN 3.5 g/dL (3.5-5.0); ALBUMIN/GLOBULIN RATIO 1.2 (0.8-2.0); ALKALINE PHOSPHATASE 93 IU/L (40-150); BLOOD UREA NITROGEN 24 mg/dL (7-26); BUN/CREATININE RATIO 27 (6-25); CALCIUM 9.4 mg/dL (8.4-10.2); CARBON DIOXIDE 23 mmol/L (22-29); CHLORIDE 104 mmol/L (98-107); CREATINE KINASE 64 IU/L (29-168); CREATININE, SERUM 0.89 mg/dL (0.57-1.11); EST GLOMERULAR FILTRATION RATE > 60 ML/MIN (60-); GLUCOSE 111 mg/dL (74-118); SODIUM 139 mmol/L (136-145)
[2019-11-23] MEDS ORDERED: ONDANSETRON HCL INJ 2MG/ML 2ML 2 MG/ML VIAL IV PRN (23:15)
[2019-11-23] MEDS ORDERED: MORPHINE SULFATE INJ 4 MG/ML INJ 1ML IV PRN (23:15)
[2019-11-24] VITALS (8 sets, daily range): BP systolic 93–128; BP diastolic 58–80
[2019-11-24] MEDS: CEFTRIAXONE SOD 1 GM/NS 50 ML 50 ML IV SCH ×3 (00:25→23:32)
[2019-11-24] MEDS: SODIUM CHLORIDE 0.9% 1000ML 1,000 ML IV SCH ×5 (00:50→22:00)
--- NOTE | 2019-11-24 04:30 | NUR ---
Patient received to room 184 via wc from the emergency room. vss. patient denies left flank pain at this time. ivf continue to infuse without difficulty. admit assessment/history complete. patient npo and verbalizes understanding of this. patient instructed to call for assistance when needed.
--- NOTE | 2019-11-24 05:15 | NUR ---
patient oob to shower per patient request. patient states, " I just feel dirty. and i need to take a shower in case i have surgery today. " patient made aware of her elevated temp 103.4 and need for some iv tylenol. patient verbalizes understanding this.
[2019-11-24 05:41] LABS: BASOPHILS % 0.1 % (0.0-1.0); EOSINOPHILS % 0.1 % (0.0-6.0); HEMATOCRIT 38.7 % (34.2-44.1); HEMOGLOBIN 13.1 g/dL (12.0-16.0); LYMPHOCYTES # (AUTO) 0.5 (1.0-3.2); LYMPHOCYTES % 3.7 % (18.0-39.1); MEAN CORPUSCULAR HGB CONC 33.9 g/dL (31-35); MEAN CORPUSCULAR VOLUME 91.5 fL (81-99); MONOCYTES # (AUTO) 1.5 (0.2-0.8); MONOCYTES % 10.4 % (4.4-11.3); NEUTROPHILS # (AUTO) 12.4 (2.1-6.9); NEUTROPHILS % 85.4 % (38.7-80.0); PLATELET COUNT 258 x10e3/uL (140-360); RED BLOOD COUNT 4.23 x10e6/uL (3.6-5.1); RED CELL DISTRIBUTION WIDTH 13.7 % (11.7-14.4)
[2019-11-24] MEDS ORDERED: ACETAMINOPHEN 1000 MG/100 ML IV STA (05:47)
--- NOTE | 2019-11-24 05:58 | NUR ---
patient medicated with tylenol 1000mg iv for temp 103.4.
[2019-11-24 06:00] LABS: ANION GAP 14.7 mmol/L (8-16); BLOOD UREA NITROGEN 22 mg/dL (7-26); BUN/CREATININE RATIO 28 (6-25); CALCIUM 9.1 mg/dL (8.4-10.2); CARBON DIOXIDE 24 mmol/L (22-29); CHLORIDE 103 mmol/L (98-107); CREATININE, SERUM 0.79 mg/dL (0.57-1.11); EST GLOMERULAR FILTRATION RATE > 60 ML/MIN (60-); GLUCOSE 120 mg/dL (74-118); POTASSIUM 3.7 mmol/L (3.5-5.1); SODIUM 138 mmol/L (136-145)
--- NOTE | 2019-11-24 06:40 | NUR ---
temp 101.3 at this this time.
--- NOTE | 2019-11-24 12:34 | NUR ---
MD HUBBARD INTO SEE PT, CONSENT OBTAINED, PT WHEELED OFF UNIT VIA BED FOR PROCEDURE, NO CHANGE IN CONDITION, FAMILY AT SIDE
[2019-11-24] MEDS ORDERED: IOPAMIDOL 300MG/ML 50ML INFUS..BTL IV ONE (13:13)
[2019-11-24] MEDS ORDERED: B&O 60MG R/S 60 MG SUPP PR ONE (13:13)
[2019-11-24] MEDS ORDERED: SCOPOLAMINE 1.5 MG PATCH ONE (13:19)
[2019-11-24] MEDS ORDERED: B&O 60MG R/S 60 MG SUPP PR PRN (13:45)
--- NOTE | 2019-11-24 14:39 | NUR ---
INPT FOR UROSEPSIS, URETERAL OBSTRUCTION, TEMP 103.5
--- NOTE | 2019-11-24 15:03 | NUR ---
PT KIA IN ROOM FROM PACU, AA&O AT THIS TIME, SERNA TO BSD, DARK YELLOW, TEMP NOTED AT 101.2, BLOOD CULTURES ORDERED PER MD ORDER
[2019-11-24] MEDS ORDERED: MIDAZOLAM HCL 2 MG/2 ML VIAL ONE (17:20)
[2019-11-24] MEDS ORDERED: FENTANYL CITRATE/PF 100MCG/2 ML INJ ONE (17:20)
[2019-11-24] MEDS: PHENAZOPYRIDINE HCL 100 MG TAB PO SCH (17:47)
[2019-11-24] MEDS ORDERED: SEVOFLURANE INHAL SOLN 250 ML PEN BTL ONE (18:25)
[2019-11-24] MEDS ORDERED: METOCLOPRAMIDE HCL 10 MG/2ML VIAL ONE (18:25)
[2019-11-24] MEDS ORDERED: DEXAMETHASONE SOD PHOS INJ 4 MG/ML VIAL ONE (18:25)
[2019-11-24] MEDS ORDERED: ONDANSETRON HCL INJ 2MG/ML 2ML 2 MG/ML VIAL ONE (18:25)
[2019-11-24] MEDS ORDERED: PROPOFOL IV EMULSION 10 MG/ML 20 ML VIAL ONE (18:25)
--- NOTE | 2019-11-24 19:15 | NUR ---
patient received awake, alert, lying quietly in bed. no c/o pain noted. ivf continue to infuse without difficulty. pm assessment complete. patient instructed to call for assistance when needed.
[2019-11-24] MEDS: TRAZODONE HCL 50 MG TAB PO PRN (22:27)
[2019-11-25] VITALS (8 sets, daily range): BP systolic 101–121; BP diastolic 50–69
[2019-11-25 05:24] LABS: BASOPHILS % 0.2 % (0.0-1.0); HEMATOCRIT 40.2 % (34.2-44.1); HEMOGLOBIN 12.9 g/dL (12.0-16.0); LYMPHOCYTES # (AUTO) 0.6 (1.0-3.2); LYMPHOCYTES % 4.3 % (18.0-39.1); MEAN CORPUSCULAR HEMOGLOBIN 30.3 pg (28-32); MEAN CORPUSCULAR HGB CONC 32.1 g/dL (31-35); MEAN CORPUSCULAR VOLUME 94.4 fL (81-99); MONOCYTES % 6.9 % (4.4-11.3); NEUTROPHILS # (AUTO) 12.2 (2.1-6.9); NEUTROPHILS % 88.3 % (38.7-80.0); PLATELET COUNT 213 x10e3/uL (140-360); RED BLOOD COUNT 4.26 x10e6/uL (3.6-5.1); RED CELL DISTRIBUTION WIDTH 13.9 % (11.7-14.4)
[2019-11-25 05:50] LABS: ANION GAP 13.5 mmol/L (8-16); BLOOD UREA NITROGEN 16 mg/dL (7-26); BUN/CREATININE RATIO 23 (6-25); CARBON DIOXIDE 24 mmol/L (22-29); CHLORIDE 104 mmol/L (98-107); CREATININE, SERUM 0.71 mg/dL (0.57-1.11); EST GLOMERULAR FILTRATION RATE > 60 ML/MIN (60-); GLUCOSE 97 mg/dL (74-118); POTASSIUM 4.5 mmol/L (3.5-5.1); SODIUM 137 mmol/L (136-145)
[2019-11-25] MEDS: SODIUM CHLORIDE 0.9% 1000ML 1,000 ML IV SCH ×3 (07:11→21:33)
[2019-11-25] MEDS: PHENAZOPYRIDINE HCL 100 MG TAB PO SCH ×3 (09:42→17:26)
--- NOTE | 2019-11-25 09:42 | NUR ---
WITH STANDBY ASSIST, PT OOB TO BATHROOM, MD HUBBARD INTO SEE PT, DISCUSSED POC
[2019-11-25] MEDS: CEFTRIAXONE SOD 1 GM/NS 50 ML 50 ML IV SCH (11:46)
[2019-11-25] MEDS: ACETAMINOPHEN/CODEINE 300MG - 30MG TAB PO PRN (11:48)
--- NOTE | 2019-11-25 13:22 | NUR ---
AMBULATING IN HALLWAY, STEADY GAIT
[2019-11-25] MEDS ORDERED: DOCUSATE 100 MG PO PRN (13:30)
--- NOTE | 2019-11-25 19:30 | NUR ---
patient received awake, alert, lying quietly in bed. vss. no c/o pain noted. ivf continue to infuse without difficulty. pm assessment complete. patient instructed to call for assistance when needed.
[2019-11-25] MEDS: CEFAZOLIN SOD 2 GM/D5W 50ML 50 ML IV SCH (21:33)
--- NOTE | 2019-11-25 21:57 | Consultation ---
DATE OF CONSULTATION: HISTORY OF PRESENT ILLNESS: The patient has pyelonephritis. This patient who is a 59-year-old white female history of obesity, history of renal stone, who has multiple procedure. She comes in with fever and chills. Urine culture showed Proteus mirabilis from 39,000 to 51,000. The patient has been admitted she had stent exchanged yesterday according to her. Her white count on admission was 13.8, hemoglobin 12.9, her sodium 137, potassium 4.5 creatinine 0.72. I was asked to see her she is currently on Rocephin. The patient is currently lying in bed, feeling better. PHYSICAL EXAMINATION: GENERAL: She is currently alert, oriented, does not seem in acute distress. VITAL SIGNS: Stable. Currently afebrile. HEENT: She is not icteric. NECK: Supple. CHEST: Clear. ABDOMEN: Soft. Bowel sounds present. No tenderness. EXTREMITIES: No edema. PAST MEDICAL HISTORY: Multiple kidney stone, multiple infection. PAST SURGICAL HISTORY: Several stent placement. ALLERGIES: NKA. SOCIAL HISTORY: There is no smoking, drug abuse, or alcohol abuse. FAMILY HISTORY: Otherwise unremarkable. PHYSICAL EXAMINATION: GENERAL: Currently alert, oriented, does not seem to be in acute distress. VITAL SIGNS: Stable. Currently afebrile. HEENT: She is not icteric. NECK: Supple. CHEST: Clear. HEART: S1-S2. ABDOMEN: Soft. Bowel sounds present. EXTREMITIES: No edema. SKIN: No rash. IMPRESSION: Pyelonephritis. She is currently on Rocephin. I would recommend to continue her Proteus mirabilis for pretty much pansensitive. I am going to change her to cefazolin 1 g q.8 hours. Discontinue Rocephin. We will keep an IV antibiotic until her white count gets better and she have no fever for more than 24 hours. Kidney stones, status post stent placement. We will follow. MD CARLOS Vega/SIMA /[id number]
[2019-11-25] MEDS ORDERED: CEFAZOLIN SOD 1 GM VIAL IV SCH (22:00)
[2019-11-25] MEDS: TRAZODONE HCL 50 MG TAB PO PRN (22:40)
--- NOTE | 2019-11-25 22:40 | NUR ---
patient medicated with trazodone 200mg po per patients request at this time.
[2019-11-26] VITALS (8 sets, daily range): BP systolic 102–130; BP diastolic 52–76
--- NOTE | 2019-11-26 | NUR ---
patient appears to be resting quietly in bed. no signs of pain/discomfort noted.
[2019-11-26] MEDS: CEFAZOLIN SOD 2 GM/D5W 50ML 50 ML IV SCH ×3 (05:31→22:00)
[2019-11-26] MEDS: SODIUM CHLORIDE 0.9% 1000ML 1,000 ML IV SCH ×3 (05:31→23:11)
--- NOTE | 2019-11-26 06:00 | NUR ---
patient awake, lying quietly in bed. ivf continue to infuse without difficulty. no c/o pain noted at this time.
[2019-11-26] MEDS: PHENAZOPYRIDINE HCL 100 MG TAB PO SCH ×3 (09:07→17:16)
--- NOTE | 2019-11-26 18:42 | NUR ---
lomeli removed at 1800. dtv
--- NOTE | 2019-11-26 19:20 | NUR ---
Patient received sitting up in bed. AAO x 4. Patient had no complaints of pain. Respirations even and non-labored. IVF infusing at 125 cc/hr. Safety measures in place. Patient instructed to call for assistance when needed. Call light within reach.
--- NOTE | 2019-11-26 21:25 | NUR ---
Patient voided 300 cc of urine s/p lomeli catheter removal.
[2019-11-26] MEDS: TRAZODONE HCL 50 MG TAB PO PRN (23:44)
[2019-11-27] VITALS: BP 113/63
[2019-11-27 04:00] VITALS: BP 108/62
[2019-11-27] MEDS: ACETAMINOPHEN/CODEINE 300MG - 30MG TAB PO PRN (05:04)
[2019-11-27] MEDS: CEFAZOLIN SOD 2 GM/D5W 50ML 50 ML IV SCH (06:00)
[2019-11-27 06:08] LABS: BASOPHILS % 0.7 % (0.0-1.0); EOSINOPHILS # (AUTO) 0.1 (0.0-0.4); HEMATOCRIT 34.6 % (34.2-44.1); HEMOGLOBIN 11.5 g/dL (12.0-16.0); LYMPHOCYTES # (AUTO) 1.1 (1.0-3.2); LYMPHOCYTES % 18.3 % (18.0-39.1); MEAN CORPUSCULAR HEMOGLOBIN 29.9 pg (28-32); MEAN CORPUSCULAR HGB CONC 33.2 g/dL (31-35); MEAN CORPUSCULAR VOLUME 90.1 fL (81-99); MONOCYTES # (AUTO) 0.7 (0.2-0.8); MONOCYTES % 11.6 % (4.4-11.3); NEUTROPHILS # (AUTO) 4.1 (2.1-6.9); NEUTROPHILS % 67.1 % (38.7-80.0); PLATELET COUNT 204 x10e3/uL (140-360); RED BLOOD COUNT 3.84 x10e6/uL (3.6-5.1); RED CELL DISTRIBUTION WIDTH 13.6 % (11.7-14.4)
[2019-11-27 06:17] LABS: ANION GAP 13.3 mmol/L (8-16); BLOOD UREA NITROGEN 11 mg/dL (7-26); BUN/CREATININE RATIO 16 (6-25); CALCIUM 8.4 mg/dL (8.4-10.2); CARBON DIOXIDE 22 mmol/L (22-29); CHLORIDE 107 mmol/L (98-107); EST GLOMERULAR FILTRATION RATE > 60 ML/MIN (60-); GLUCOSE 96 mg/dL (74-118); POTASSIUM 3.3 mmol/L (3.5-5.1); SODIUM 139 mmol/L (136-145)
--- NOTE | 2019-11-27 07:00 | NUR ---
BEDSIDE SHIFT REPORT RECEIVED FROM THE PREVIOUS SHIFT RN. EDUCATED PATIENT ABOUT FALL PRECAUTIONS. CALL LIGHT IN EASY REACH. INSTRUCTED PATIENT TO USE CALL LIGHT FOR ANY NEEDS. PATIENT VERBALIZE UNDERSTANDING. BED IS LOW, WHEELS LOCKED, SIDE RAILS UP X2 FOR SAFETY. PT DENIES NEEDS AT THIS TIME
[2019-11-27 08:23] VITALS: BP 114/63
[2019-11-27 09:29] VITALS: BP 114/63
[2019-11-27 10:13] VITALS: BP 114/63
[2019-11-27] MEDS: PHENAZOPYRIDINE HCL 100 MG TAB PO SCH (10:15)
[2019-11-27] MEDS: SODIUM CHLORIDE 0.9% 1000ML 1,000 ML IV SCH (10:31)
--- NOTE | 2019-11-27 11:39 | NUR ---
LATE NOTE 11/26/2019 1800 SERNA REMOVED WITHOUT DIFFICULTY. PATIENT TOLERATED WELL. DTV, ASKED TO CALL NURSE TO SEE VOID. URINE TO BE STRAINED
[2019-11-27] MEDS ORDERED: POTASSIUM CHLORIDE 10MEQ EA PO NR (12:15)
[2019-11-27 12:32] VITALS: BP 131/85
[2019-11-27] MEDS ORDERED: CIPRO500 MG PO (12:53)
[2019-11-27] MEDS ORDERED: ONDANSETRON HCL4 MG (12:54)
[2019-11-27] MEDS ORDERED: TYLENOL # 31 EA PO (12:56)
[2019-11-27] MEDS ORDERED: OXYBUTYNIN CHLOR5 MG PO (12:56)
--- NOTE | 2019-11-27 13:04 | Discharge Summary ---
ADMITTING DIAGNOSES: 1. Sepsis secondary to left-sided pyelonephritis. 2. Left distal ureter obstructing calculi. 3. Bilateral intrarenal calculi. DISCHARGE DIAGNOSES: 1. Sepsis secondary to left-sided Proteus mirabilis pyelonephritis/urinary tract infection, resolved. 2. Right-sided Proteus mirabilis pyelonephritis/urinary tract infection, resolving. 3. Multiple obstructing calculi in left distal ureter. 4. Bilateral intrarenal calculi. HOSPITAL COURSE: This is a 59-year-old white woman, who was initially admitted to [facility] with diagnosis of sepsis secondary to left-sided pyelonephritis. On admission, the patient underwent a CT of the abdomen and pelvis without contrast that revealed multiple obstructing calculi in the left distal ureteral resulting in marked hydroureteronephrosis. The CT of the abdomen and pelvis also revealed bilateral intrarenal calculi, left greater than right. The patient improved clinically in regard to her pyelonephritis with intravenous antibiotics, namely cefazolin. The patient was seen by Infectious Disease specialist during this hospital stay, namely Dr. Morales. The patient's urine culture during this hospitalization revealed Proteus mirabilis bacterial species that was found to be pansensitive except it was found to be resistant to nitrofurantoin. Blood cultures remained negative during this hospitalization. The patient was also seen by urologist during this hospital stay, namely Dr. Wilburn. Dr. Wilburn stated that he wanted the patient to receive antibiotics for approximately 2-3 weeks and then he would perform elective bilateral uroscopy. CONDITION ON DISCHARGE: Stable. DISCHARGE MEDICATIONS: 1. Ciprofloxacin 500 mg twice a day for 11 more days. 2. Ditropan 5 mg b.i.d. 3. Tylenol No.3 one pill every 4 hours p.r.n. pain, 30 prescribed. 4. Zofran 4 mg every 4 hours p.r.n. nausea and vomiting, 30 prescribed. 5. Colace 100 mg b.i.d. 6. Ferrous sulfate 325 mg daily. 7. Folic acid 1 mg daily. 8. Omeprazole 40 mg daily. 9. Trazodone 200 mg at bedtime. 10. Vitamin C 500 mg daily. 11. Vitamin D3, 2000 units daily. 12. Vitamin B12, 1000 mcg daily. The patient was instructed to stop hydrochlorothiazide under further notice. FOLLOWUP INSTRUCTIONS: The patient will follow up with Dr. Pranav Wilburn, her urologist within next three weeks and will likely undergo elective bilateral uroscopy. The patient also instructed to follow up with Dr. Morales, the Infectious Disease specialist within two weeks. The patient instructed to follow up with her primary care physician within next two weeks also. MD KEMAR Burk/SIMA /[id number] cc: MD Pranav Vega MD
--- NOTE | 2019-12-10 00:26 | Operative Report ---
DATE OF PROCEDURE: 11/24/2019 SURGEON: Pranav Wilburn MD PREOPERATIVE DIAGNOSES: 1. Urinary tract infection. 2. Microscopic hematuria. 3. Bilateral hydronephrosis due to stones. POSTOPERATIVE DIAGNOSES: 1. Urinary tract infection. 2. Microscopic hematuria. 3. Bilateral hydronephrosis due to stones. 4. Urethral hypermobility. 5. Atrophic (senile) vaginitis. 6. Grade 1 cystocele. OPERATIONS PERFORMED: 1. Cystourethroscopy with bilateral ureteral catheterization and retrograde ureteropyelography (separate procedure performed for the hematuria and urinary tract infection). 2. Interpretation of retrograde ureteropyelography. 3. Supervision of fluoroscopy, no radiologist present. 4. Cystourethroscopy with insertion of bilateral indwelling ureteral stents (separate procedure performed to relieve the hydronephrosis due to stone). 5. Pelvic examination under anesthesia. ANESTHESIA: General. COMPLICATIONS: None. CLINICAL SUMMARY: Please refer to consultation from the same date. OPERATIVE PROCEDURE IN DETAIL: Informed consent was verified. Dejah Epstein was properly identified, taken to the operating room, placed on the cystoscopy table in supine position. Anesthesia was uneventfully begun. The patient was then carefully and gently repositioned in dorsal lithotomy position with all pressure points well padded. Her genitalia were prepared and draped in usual sterile fashion. The cystoscope sheath with obturator in place was atraumatically inserted into the patient's urethra and the bladder was drained. Panendoscopy of the urinary bladder revealed no suspicious mucosal lesions, no tumors, and no stones. Normally positioned and configured ureteral orifices were identified. A ureteral catheter was used to cannulate the each ureter and retrograde ureteral pyelograms were performed. With cystoscopic fluoroscopic guidance, an indwelling ureteral stent was then placed. It was coiled in the patient's kidneys as well as the patient's bladder. This was a bilateral procedure with identical steps performed on each side. Interpretation of retrograde ureteropyelography: Contrast was instilled in retrograde fashion bilaterally. There were no tumors. There were no suspicious lesions. There was hydronephrosis noted. The stents were in good position coiled in the patient's kidneys as well as the patient's bladder at the end of the case. The patient's bladder was drained. Cystoscope was withdrawn. Pelvic examination revealed a grade 1 cystocele with urethral hypermobility. There was also atrophic (senile) vaginitis. The patient was uneventfully reversed from anesthesia and taken to recovery room in stable condition. There were no complications to the procedure. The patient tolerated the procedure well. We will plan on following the patient in the hospital during her hospitalization and as an outpatient electively at a later time, we will perform bilateral ureteroscopy with holmium laser standby. Pranav MD DAVE Wilburn/SIMA /[id number]
== END 2019-11-27 13:16 | disposition home or self-care (01) | DRG 854 ==
LOC: ER 17:46 → ERHOLD 23:13 → IMCU 11-24 03:45 → OBSVTOIN 11-24 14:32 → MED/SURG2 11-26 16:55
PROC: BT14YZZ Fluoroscopy of Kidneys, Ureters and Bladder using Other Contrast (ICD-10-PCS; principal; 2019-11-25)
PROC: 0T788DZ Dilation of Bilateral Ureters with Intraluminal Device, Via Natural or Artificial Opening Endoscopic (ICD-10-PCS; 2019-11-25)
DX: A41.9 Sepsis, unspecified organism (principal); N13.6 Pyonephrosis; N20.2 Calculus of kidney with calculus of ureter; B96.4 Proteus (mirabilis) (morganii) as the cause of diseases classified elsewhere; N81.10 Cystocele, unspecified; N95.2 Postmenopausal atrophic vaginitis
CPT/HCPCS: 36415; 74176; 74420; 80048; 80053; 81001; 82550; 82553; 83970; 84484; 84550; 85025; 85610; 85730; 87040; 87086; 87186; 88300; 96365; 99284; C1758; C2617; G0378; J0690; J0696; J1100; J2250; J2405; J2765; J3010; J7030

== ENCOUNTER 2019-12-07 20:07 | Emergency (ER) | payer OTHER ==
[~2019-12-07] VITALS: Ht 167.6 cm; Wt 90.7 kg
[~2019-12-07 20:07] MED LIST changes: +CIPRO500 MG PO; +ONDANSETRON HCL4 MG; +OXYBUTYNIN CHLOR5 MG PO; +TYLENOL # 31 EA PO
[2019-12-07 22:28] LABS: CLARITY,URINE CLOUDY (CLEAR); COLOR,URINE RED (YELLOW)
[2019-12-07 22:29] LABS: BILIRUBIN,URINE MODERATE (NEGATIVE); KETONES,URINE 1+ (NEGATIVE); LEUKOCYTE ESTERASE ,URINE TRACE (NEGATIVE); NITRITE,URINE POSITIVE (NEGATIVE); PROTEIN,URINE DIPSTICK 2+ (NEGATIVE); URINE UROBILINOGEN 1 mg/dL (0.2 - 1)
[2019-12-07 22:41] LABS: RBC,URINE >50 /HPF (0-5)
[2019-12-07 22:42] LABS: BACTERIA,URINE MANY /HPF; EPITHELIAL CELLS,URINE RARE /LPF
--- NOTE | 2019-12-07 23:00 | Diagnostic Imaging Report ---
EXAM: ABDOMEN-1VIEW (KUB), DATE: 12/07/2019 10:00 PM INDICATION: Fever. Evaluate ureteral stent. COMPARISON: 09/28/2019. FINDINGS: LINES/TUBES: Bilateral double-J ureteral stents appear in adequate position. BOWEL PATTERN: No evidence for obstruction. SOFT TISSUES: Cholecystectomy clips. LUNG BASES: Bibasilar subsegmental. BONES: Degenerative changes of the lumbar spine, bilateral hip and SI joints. IMPRESSION: Bilateral double-J ureteral stents appear in adequate position. Signed by: Dr. Abdoulaye Arreola M.D. on 12/07/2019 10:58 PM
[2019-12-07 23:16] LABS: BASOPHILS # (AUTO) 0.1 (0.0-0.1); BASOPHILS % 0.6 % (0.0-1.0); EOSINOPHILS # (AUTO) 0.4 (0.0-0.4); EOSINOPHILS % 3.6 % (0.0-6.0); LYMPHOCYTES # (AUTO) 1.9 (1.0-3.2); LYMPHOCYTES % 16.5 % (18.0-39.1); MEAN CORPUSCULAR HEMOGLOBIN 30.1 pg (28-32); MEAN CORPUSCULAR HGB CONC 33.3 g/dL (31-35); MEAN CORPUSCULAR VOLUME 90.3 fL (81-99); MONOCYTES # (AUTO) 0.9 (0.2-0.8); MONOCYTES % 7.6 % (4.4-11.3); NEUTROPHILS # (AUTO) 8.1 (2.1-6.9); NEUTROPHILS % 71.3 % (38.7-80.0); PLATELET COUNT 412 x10e3/uL (140-360); RED BLOOD COUNT 4.65 x10e6/uL (3.6-5.1)
[2019-12-07 23:37] LABS: ANION GAP 14.1 mmol/L (8-16); CALCIUM 9.3 mg/dL (8.4-10.2); CREATININE, SERUM 1.05 mg/dL (0.57-1.11); POTASSIUM 3.1 mmol/L (3.5-5.1)
[2019-12-07] MEDS ORDERED: POTASSIUM CHLORIDE 20 MEQ TAB CR PO STA (23:54)
[2019-12-08 00:12] VITALS: BP 107/75
== END 2019-12-08 00:20 | disposition home or self-care (01) ==
LOC: ER 20:07
DX: R50.9 Fever, unspecified (principal); N30.91 Cystitis, unspecified with hematuria; Z87.442 Personal history of urinary calculi
CPT/HCPCS: 36415; 74018; 80048; 81001; 85025; 87086; 99284

== ENCOUNTER → 2019-12-29 | Day surgery (SDC) | payer OTHER ==
[2019-12-28 12:56] LABS: BASOPHILS # (AUTO) 0.1 (0.0-0.1); BASOPHILS % 0.9 % (0.0-1.0); EOSINOPHILS # (AUTO) 0.3 (0.0-0.4); EOSINOPHILS % 5.4 % (0.0-6.0); HEMATOCRIT 40.1 % (34.2-44.1); HEMOGLOBIN 13.2 g/dL (12.0-16.0); LYMPHOCYTES # (AUTO) 1.3 (1.0-3.2); LYMPHOCYTES % 22.3 % (18.0-39.1); MEAN CORPUSCULAR HEMOGLOBIN 30.2 pg (28-32); MEAN CORPUSCULAR HGB CONC 32.9 g/dL (31-35); MEAN CORPUSCULAR VOLUME 91.8 fL (81-99); MONOCYTES # (AUTO) 0.6 (0.2-0.8); MONOCYTES % 9.7 % (4.4-11.3); NEUTROPHILS # (AUTO) 3.5 (2.1-6.9); NEUTROPHILS % 61.5 % (38.7-80.0); PLATELET COUNT 270 x10e3/uL (140-360); RED BLOOD COUNT 4.37 x10e6/uL (3.6-5.1); RED CELL DISTRIBUTION WIDTH 13.3 % (11.7-14.4)
[2019-12-28 13:18] LABS: ANION GAP 9.4 mmol/L (8-16); BLOOD UREA NITROGEN 13 mg/dL (7-26); BUN/CREATININE RATIO 15 (6-25); CALCIUM 8.5 mg/dL (8.4-10.2); CARBON DIOXIDE 29 mmol/L (22-29); CHLORIDE 104 mmol/L (98-107); CREATININE, SERUM 0.86 mg/dL (0.57-1.11); EST GLOMERULAR FILTRATION RATE > 60 ML/MIN (60-); GLUCOSE 88 mg/dL (74-118); POTASSIUM 4.4 mmol/L (3.5-5.1); SODIUM 138 mmol/L (136-145)
--- NOTE | 2019-12-28 13:40 | Diagnostic Imaging Report ---
Exam: Chest radiograph Clinical History: Preoperative clearance Findings: The cardiomediastinal silhouette and lungs are normal. The regional skeleton and soft tissue are unremarkable. There is no evidence of pleural effusion or pneumothorax. Impression: No radiographic evidence of acute cardiopulmonary disease. Signed by: Dr. Tuan Barraza MD on 12/28/2019 1:38 PM
--- NOTE | 2019-12-28 13:54 | Diagnostic Imaging Report ---
Exam: KUB Comparison: December 07, 2019 Clinical history: Preoperative evaluation Findings: Bilateral internal ureteral stents are noted in their expected locations. There is no evidence of radiopaque stones along the course of bilateral renal collecting systems. There is nonobstructive bowel gas pattern. Degenerative changes are noted throughout the lumbar spine. Impression: 1. Status post bilateral internal ureteral stent insertion. Signed by: Dr. Tuan Barraza MD on 12/28/2019 1:51 PM
[~2019-12-29] MED LIST changes: +B&O 60MG R/S 60 MG SUPP PR ONE; +CEFTRIAXONE SOD 1 GM/NS 50 ML 50 ML IV ONE; +DEXAMETHASONE SOD PHOS INJ 4 MG/ML VIAL ONE; +FENTANYL CITRATE/PF 100MCG/2 ML INJ ONE; +HYDROCHLOROTHIA25 MG PO; +IOPAMIDOL 300MG/ML 50ML INFUS..BTL IV ONE; +LIDOCAINE HCL 2% LOCAL INJ 5 ML SDV VIAL INJ ONE; +MIDAZOLAM HCL 2 MG/2 ML VIAL ONE; +ONDANSETRON HCL INJ 2MG/ML 2ML 2 MG/ML VIAL ONE; +PROPOFOL IV EMULSION 10 MG/ML 20 ML VIAL ONE; +SEVOFLURANE INHAL SOLN 250 ML PEN BTL ONE; +TYLENOL WITH C1 EACH PO
[2019-12-29 11:45] VITALS: BP 101/74
--- NOTE | 2020-01-26 02:12 | Operative Report ---
DATE OF PROCEDURE: 12/29/2019 SURGEON: Pranav Wilburn MD PREOPERATIVE DIAGNOSIS: Right urolithiasis. POSTOPERATIVE DIAGNOSES: 1. Right indwelling ureteral stent. 2. Left indwelling ureteral stent. 3. Right ureterolithiasis. 4. Right nephrolithiasis. 5. Left nephrolithiasis. 6. Urethral hypermobility. 7. Grade 2-3 cystocele. 8. Grade 1 rectocele. 9. Atrophic (senile) vaginitis. OPERATIONS PERFORMED: Note, these are all staged procedures as part of multi-staged and multi-step process in managing the patient's urolithiasis. 1. Cystourethroscopy with complicated removal of bilateral indwelling ureteral stents (separate procedure performed for the diagnosis of the stents). 2. Right semi-rigid ureteroscopy with stone manipulation and extraction of two right ureteral stones (separate procedure performed for the diagnosis of stones). 3. Right flexible ureteropyeloscopy with stone manipulation (Separate procedure performed for the right nephrolithiasis done with separate scope). 4. Left ureteroscopy with stone manipulation (separate procedure performed to irrigate the left renal small fragments of stones consistent with diffuse renal sand),(separate procedure performed on the contralateral side. 5. Urological services with supervision and interpretation of ureteroscopy. 6. Interpretation of retrograde ureteropyelography. 7. Supervision of fluoroscopy, no radiologist present. 8. Pelvic examination under anesthesia. ANESTHESIA: General. COMPLICATIONS: None. CLINICAL SUMMARY: Dejah Epstein is a 59-year-old woman with stents. She has stones. She is brought in hopes of rendering her stent free and stone free. She is aware of the risks of bleeding, infection, injury to adjacent structures, need for additional procedures and elected to proceed. OPERATIVE PROCEDURE IN DETAIL: Informed consent was verified. Dejah Epstein was properly identified, taken to the operating room, placed on the cystoscopy table in supine position. Anesthesia was uneventfully begun. The patient was then carefully and gently repositioned in dorsal lithotomy position. All pressure points well padded. Her genitalia were prepared and draped in the usual sterile fashion. The cystoscope sheath with obturator in place was atraumatically inserted in the patient's urethra and bladder was drained. Panendoscopy of the bladder revealed stents emerging from both ureteral orifices. There were no suspicious lesions. There were no intravesical stones. A guidewire was then placed into the right ureter and guided to the level of the patient's kidney. The stent was then grasped completely, removed and discarded. Semi-rigid ureteroscope was then placed alongside the guidewire and guided into the patient's right ureter. There were 2 stones identified. The stones were grasped with Nitinol tipless basket and extracted atraumatically. Secondary wire was utilized. Flexible ureteroscope was then brought up over the guidewire and guided to the level of the patient's kidney. Panendoscopy revealed one stone. There was some fine sand remaining, but no additional stone fragments that could be grasped. Jonah's plaques were present. We grasped the only sizable stone within the right kidney and extracted it atraumatically. The guidewire was then placed into the left ureter and guided to the level of the patient's kidney. The stent was then grasped completely, removed and discarded. The flexible ureteroscope was then placed over the guidewire and guided to the level of the patient's kidney. The panendoscopy revealed sand, but no sizable stones. There was no stone that we can actually grasp. We manipulated the sand by irrigating and loosen it from the mucosa just as we did on the right-hand side and this sand should be passable. Jonah's plaques were present. Both ureters were completely free of sand, stones, strictures, and tumors at the end of the procedure upon careful examination. Interpretation of retrograde ureteropyelography contrast was instilled in retrograde fashion bilaterally. Chronic-appearing hydronephrosis was noted bilaterally. There were no suspicious lesions. The patient's bladder was drained. Cystoscope was withdrawn. Pelvic examination revealed urethral hypermobility, a grade 2-3 cystocele, grade 1 rectocele, and atrophic vaginitis. No abnormal palpable pelvic masses could be appreciated. There were no obvious mucosal lesions. The patient was then uneventfully reversed from anesthesia and taken to recovery in stable condition. There were no complications from the procedure. She tolerated the procedure well. PLANS: Include: 1. Working the patient up with studies including a 24-hour urine and pursuing an aggressive metabolic stone workup as well as a stone prevention medical management. 2. We will need to order a nuclear medicine renal scan with Lasix washout to evaluate the degree of hydronephrosis and see whether or not the patient's upper tract really drained. 3. We will follow the patient up in the office as well as on a long-term basis. Pranav MD Cosmo OH/SIMA /[id number] cc: [facility]
== END | disposition home or self-care (01) ==
LOC: OR 08:54
PROVIDERS: ATTEND Urology
DX: N20.0 Calculus of kidney (principal); Z96.0 Presence of urogenital implants; Z01.810 Encounter for preprocedural cardiovascular examination; Z01.812 Encounter for preprocedural laboratory examination; Z01.811 Encounter for preprocedural respiratory examination; N20.2 Calculus of kidney with calculus of ureter; N36.41 Hypermobility of urethra; N81.10 Cystocele, unspecified; N81.6 Rectocele; N95.2 Postmenopausal atrophic vaginitis
CPT/HCPCS: 36415; 71046; 74018; 74420; 80048; 85025; 87086; 88300; 93005; C1766; C1769; J0696; J1100; J2001; J2250; J2405; J3010

== ENCOUNTER → 2020-03-13 | Outpatient (CLI) | payer OTHER ==
[~2020-03-13] MED LIST changes: -B&O 60MG R/S 60 MG SUPP PR ONE; -CEFTRIAXONE SOD 1 GM/NS 50 ML 50 ML IV ONE; -DEXAMETHASONE SOD PHOS INJ 4 MG/ML VIAL ONE; -FENTANYL CITRATE/PF 100MCG/2 ML INJ ONE; -IOPAMIDOL 300MG/ML 50ML INFUS..BTL IV ONE; -LIDOCAINE HCL 2% LOCAL INJ 5 ML SDV VIAL INJ ONE; -MIDAZOLAM HCL 2 MG/2 ML VIAL ONE; -ONDANSETRON HCL INJ 2MG/ML 2ML 2 MG/ML VIAL ONE; -PROPOFOL IV EMULSION 10 MG/ML 20 ML VIAL ONE; -SEVOFLURANE INHAL SOLN 250 ML PEN BTL ONE
--- NOTE | 2020-03-13 15:02 | Diagnostic Imaging Report ---
EXAM: ABDOMEN-1VIEW (KUB) DATE: 03/13/2020 2:30 PM INDICATION: Calculus of kidney COMPARISON: 12/28/2019 FINDINGS: There is been interval removal of the previously visualized ureteral stents. Bowel gas pattern appears nonobstructive. No pathologically dilated loops of bowel are identified. A 4 mm calcification is noted projecting over the superior left renal shadow likely reflecting a small renal stone. No other radiographically evident renal calculi or urinary stones are appreciated. There is mild levoscoliosis of the lumbar spine. The osseous structures otherwise demonstrate degenerative changes without evidence for acute abnormality. IMPRESSION: Interval removal of bilateral nephroureteral stents. 4 mm left upper pole renal calculus. Signed by: Dr. Aba Mera MD on 03/13/2020 2:59 PM
== END ==
LOC: RAD 14:20
PROVIDERS: ATTEND Urology
DX: N20.0 Calculus of kidney (principal)
CPT/HCPCS: 74018

== ENCOUNTER → 2020-07-05 | Outpatient (CLI) | payer OTHER ==
--- NOTE | 2020-07-05 16:26 | Diagnostic Imaging Report ---
EXAM: CT Abdomen and Pelvis WITHOUT intravenous contrast IINDICATION: ^[id number] ^[id number] ^CALCULUS OF KIDNEY. COMPARISON: 11/23/2019 TECHNIQUE: Abdomen and pelvis were scanned utilizing a multidetector helical scanner from the lung base to the pubic symphysis without administration of IV contrast. Coronal and sagittal reformations were obtained. Routine technique was performed. IV CONTRAST: None ORAL CONTRAST: None COMPLICATIONS: None RADIATION DOSE: Total DLP: 457 mGy*cm Dose modulation, iterative reconstruction, and/or weight based adjustment of the mA/kV was utilized to reduce the radiation dose to as low as reasonably achievable. FINDINGS: LOWER THORAX: Left basilar nodule is noted measuring up to 5 mm (image 33). HEPATOBILIARY: No focal hepatic lesions. Stable common bile duct dilatation, likely postsurgical. Gallbladder surgically absent. SPLEEN: No splenomegaly. PANCREAS: No focal masses or ductal dilatation. ADRENALS: No adrenal nodules. KIDNEYS/URETERS: There are multiple nonobstructing left renal calculi. Within the midpole there are 3 stones measuring 6 mm, 3 mm and 3 mm. At the inferior pole there is a 2 mm stone. These calculi are similar to prior exam. Previously identified left distal ureteral calculi and additional punctate left renal calculi have resolved. There are a few questionable 1 to 2 mm right renal calculi for example image 74. Negative for hydronephrosis or hydroureter. Negative for ureteral stone. No surrounding inflammatory changes or fluid collection is noted. PELVIC ORGANS/BLADDER: Urinary bladder is moderately distended and unremarkable. Uterus and adnexa are unremarkable by noncontrast CT technique. No pelvic free fluid is noted. PERITONEUM / RETROPERITONEUM: No free air or fluid. LYMPH NODES: No lymphadenopathy. VESSELS: Unremarkable. GI TRACT: Suboptimally evaluated without oral and IV contrast. 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 Mild to moderate colonic stool retention is noted. Diverticuli of the distal descending and sigmoid colon are noted without surrounding inflammatory changes. Normal appendix is noted. Negative for obstruction. BONES AND SOFT TISSUES: No acute osseous abnormality. No suspicious lytic or blastic lesion. Focal advanced degenerative changes of the mid lumbar spine are noted from L3-4 through L5-S1. Transitional anatomy is noted with lumbarization of the S1 vertebral body. Soft tissues are unremarkable. IMPRESSION: 1. Multiple nonobstructing left renal calculi measuring up to 6 mm in largest diameter. Question a single 2 mm right renal calculus. Negative for hydronephrosis or perinephric fluid collection. Renal calculi are similar to CT dated 11/23/2019. Other renal calculi has since resolved. 2. Moderate colonic stool retention. 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 Uncomplicated colonic diverticulosis. Signed by: Chon Gregory MD on 07/05/2020 4:23 PM
== END ==
LOC: CT 15:15
PROVIDERS: ATTEND Urology
DX: N20.0 Calculus of kidney (principal)
CPT/HCPCS: 74176

== ENCOUNTER → 2020-08-23 | Day surgery (SDC) | payer OTHER ==
[2020-08-18 16:36] LABS: ANION GAP 11.9 mmol/L (8-16); BLOOD UREA NITROGEN 15 mg/dL (7-26); BUN/CREATININE RATIO 19 (6-25); CALCIUM 9.1 mg/dL (8.4-10.2); CARBON DIOXIDE 30 mmol/L (22-29); CHLORIDE 105 mmol/L (98-107); CREATININE, SERUM 0.79 mg/dL (0.57-1.11); EST GLOMERULAR FILTRATION RATE > 60 ML/MIN (60-); GLUCOSE 96 mg/dL (74-118); POTASSIUM 3.9 mmol/L (3.5-5.1); SODIUM 143 mmol/L (136-145)
[~2020-08-23] MED LIST changes: +B&O 60MG R/S 60 MG SUPP PR ONE; +CEFTRIAXONE SOD 1 GM/NS 50 ML 50 ML IV ONE; +DEXAMETHASONE SOD PHOS INJ 4 MG/ML VIAL ONE; +FAMOTIDINE 20 MG/2 ML VIAL IV ONE; +FENTANYL CITRATE/PF 100MCG/2 ML INJ ONE; +GLYCOPYRROLATE 0.2 MG/ML VIAL ONE; +IOPAMIDOL 300MG/ML 50ML INFUS..BTL IV ONE; +LIDOCAINE HCL 2% LOCAL INJ 5 ML SDV VIAL INJ ONE; +METOCLOPRAMIDE HCL 10 MG/2ML VIAL ONE; +MIDAZOLAM HCL 2 MG/2 ML VIAL ONE; +MORPHINE SULFATE INJ 4 MG/ML INJ 1ML ONE; +NITROFURANTOIN50 MG PO; +ONDANSETRON HCL INJ 2MG/ML 2ML 2 MG/ML VIAL ONE; +PROPOFOL IV EMULSION 10 MG/ML 20 ML VIAL ONE; +SEVOFLURANE INHAL SOLN 250 ML PEN BTL ONE; +SODIUM CHLORIDE 0.9% 50ML 50 ML ONE
[2020-08-23 10:17] VITALS: BP 112/71
== END | disposition home or self-care (01) ==
LOC: OR 05:03
PROVIDERS: ATTEND Urology
DX: N20.0 Calculus of kidney (principal); R31.0 Gross hematuria; N39.46 Mixed incontinence; N32.81 Overactive bladder; R35.0 Frequency of micturition; E66.9 Obesity, unspecified; D64.9 Anemia, unspecified; N35.92 Unspecified urethral stricture, female; N36.41 Hypermobility of urethra; N18.6 End stage renal disease; N95.2 Postmenopausal atrophic vaginitis; Z87.442 Personal history of urinary calculi; N20.1 Calculus of ureter; N13.30 Unspecified hydronephrosis; Z01.810 Encounter for preprocedural cardiovascular examination; Z01.812 Encounter for preprocedural laboratory examination; Z01.818 Encounter for other preprocedural examination; Z11.59 Encounter for screening for other viral diseases; N81.10 Cystocele, unspecified; N81.6 Rectocele; Z68.28 Body mass index [BMI] 28.0-28.9, adult
CPT/HCPCS: 36415; 50590; 52005; 74018; 74420; 80048; 87086; 87186; 93005; C1758; J0696; J1100; J2001; J2270; J2405; J2704; J2765; Q9967; U0002; J2250; J3010

== ENCOUNTER 2023-04-03 20:09 | Observation (INO) | payer OTHER ==
[~2023-04-03] VITALS: Ht 167.6 cm; Wt 63.7 kg
[~2023-04-03 20:09] MED LIST changes: -B&O 60MG R/S 60 MG SUPP PR ONE; -CEFTRIAXONE SOD 1 GM/NS 50 ML 50 ML IV ONE; -DEXAMETHASONE SOD PHOS INJ 4 MG/ML VIAL ONE; -FAMOTIDINE 20 MG/2 ML VIAL IV ONE; -FENTANYL CITRATE/PF 100MCG/2 ML INJ ONE; -GLYCOPYRROLATE 0.2 MG/ML VIAL ONE; -IOPAMIDOL 300MG/ML 50ML INFUS..BTL IV ONE; -LIDOCAINE HCL 2% LOCAL INJ 5 ML SDV VIAL INJ ONE; -METOCLOPRAMIDE HCL 10 MG/2ML VIAL ONE; -MIDAZOLAM HCL 2 MG/2 ML VIAL ONE; -MORPHINE SULFATE INJ 4 MG/ML INJ 1ML ONE; -ONDANSETRON HCL INJ 2MG/ML 2ML 2 MG/ML VIAL ONE; -PROPOFOL IV EMULSION 10 MG/ML 20 ML VIAL ONE; -SEVOFLURANE INHAL SOLN 250 ML PEN BTL ONE; -SODIUM CHLORIDE 0.9% 50ML 50 ML ONE
[2023-04-03 21:02] LABS: BASOPHILS # (AUTO) 0.1 (0.0-0.1); BASOPHILS % 0.8 % (0.0-1.0); EOSINOPHILS # (AUTO) 0.2 (0.0-0.4); EOSINOPHILS % 2.5 % (0.0-6.0); HEMATOCRIT 41.4 % (34.2-44.1); HEMOGLOBIN 13.7 g/dL (12.0-16.0); LYMPHOCYTES # (AUTO) 1.8 (1.0-3.2); MEAN CORPUSCULAR HEMOGLOBIN 30.9 pg (28-32); MEAN CORPUSCULAR HGB CONC 33.1 g/dL (31-35); MEAN CORPUSCULAR VOLUME 93.2 fL (81-99); MONOCYTES # (AUTO) 0.6 (0.2-0.8); MONOCYTES % 8.2 % (4.4-11.3); NEUTROPHILS % 65.1 % (38.7-80.0); PLATELET COUNT 282 x10e3/uL (140-360); RED BLOOD COUNT 4.44 x10e6/uL (3.6-5.1); RED CELL DISTRIBUTION WIDTH 12.8 % (11.7-14.4)
[2023-04-03 21:10] LABS: INR 0.9; PARTIAL THROMBOPLASTIN TIME 31.1 seconds (23.8-35.5); PROTHROMBIN TIME 12.6 seconds (11.9-14.5)
[2023-04-03 21:17] LABS: ANION GAP 12.9 mmol/L (8-16); CREATININE, SERUM 0.68 mg/dL (0.57-1.11); POTASSIUM 3.9 mmol/L (3.5-5.1)
[2023-04-03 21:34] LABS: CLARITY,URINE SL CLOUDY (CLEAR); COLOR,URINE YELLOW (YELLOW); LEUKOCYTE ESTERASE ,URINE NEGATIVE (NEGATIVE); NITRITE,URINE NEGATIVE (NEGATIVE)
[2023-04-03 21:35] LABS: KETONES,URINE NEGATIVE (NEGATIVE); PROTEIN,URINE DIPSTICK NEGATIVE (NEGATIVE); URINE UROBILINOGEN 0.2 mg/dL (0.2 - 1)
[2023-04-03 21:44] LABS: BACTERIA,URINE FEW /HPF; EPITHELIAL CELLS,URINE FEW /LPF; RBC,URINE 0-5 /HPF (0-5); WBC,URINE (MAN) 0-5 /HPF (0-5)
[2023-04-04] VITALS (9 sets, daily range): BP systolic 107–125; BP diastolic 70–87; PULSE 52–84; RESP 16–20; TEMP 97.4–98.3; O2SAT 98–100
[2023-04-04] MEDS ORDERED: CEFTRIAXONE 1 GM VIAL ONE (02:32)
[2023-04-04] MEDS ORDERED: SUCRALFATE1 GM PO (03:14)
[2023-04-04] MEDS ORDERED: DEXLANSOPRAZOLE60 MG PO (03:17)
[2023-04-04] MEDS ORDERED: LEVOFLOXACIN250 MG PO (03:17)
[2023-04-04] MEDS: SUCRALFATE 1 GM TAB PO SCH ×4 (11:30→20:39)
[2023-04-04] MEDS ORDERED: FENTANYL CITRATE/PF 100MCG/2 ML INJ ONE (13:34)
[2023-04-04] MEDS ORDERED: ACETAMINOPHEN 1000 MG/100 ML 100 ML IV ONE (13:47)
[2023-04-04] MEDS ORDERED: PHENAZOPYRIDINE HCL 100 MG TAB PO PRN (14:15)
[2023-04-04] MEDS ORDERED: ONDANSETRON HCL INJ 2MG/ML 2ML 2 MG/ML VIAL ONE (14:58)
[2023-04-04] MEDS ORDERED: EPHEDRINE SULFATE INJ 50 MG/ML VIAL ONE (14:58)
[2023-04-04] MEDS ORDERED: LIDOCAINE HCL 2% LOCAL INJ 5 ML SDV VIAL INJ ONE (14:58)
[2023-04-04] MEDS ORDERED: POVIDONE IODINE 0.05% 0.05 % ML PO ONE (14:58)
[2023-04-04] MEDS ORDERED: SEVOFLURANE INHAL SOLN 250 ML PEN BTL ONE (14:58)
[2023-04-04] MEDS ORDERED: PROPOFOL IV EMULSION 10 MG/ML 20 ML VIAL ONE (14:58)
[2023-04-04] MEDS ORDERED: DEXAMETHASONE SOD PHOS INJ 4 MG/ML SDV ONE (14:58)
[2023-04-04] MEDS: OXYBUTYNIN CHLORIDE 5 MG TAB PO SCH (16:47)
[2023-04-04] MEDS: POTASSIUM CHLORIDE 10MEQ EA PO SCH ×2 (16:47→20:40)
[2023-04-04] MEDS: ONDANSETRON HCL INJ 2MG/ML 2ML 2 MG/ML VIAL IV PRN (17:51)
[2023-04-04] MEDS: Morphine 4mg INJECTION 4 MG/ML INJ IV PRN (17:51)
[2023-04-04] MEDS ORDERED: TRAZODONE HCL 50 MG TAB PO SCH (21:00)
[2023-04-05] MEDS: Morphine 4mg INJECTION 4 MG/ML INJ IV PRN ×2 (00:01→09:23)
[2023-04-05 00:08] VITALS: BP 112/73; PULSE 70; RESP 16; TEMP 97.4; O2SAT 100
[2023-04-05 04:23] VITALS: BP 133/81; PULSE 82; RESP 18; TEMP 97.7; O2SAT 100
[2023-04-05 08:19] VITALS: BP 118/68; PULSE 71; RESP 20; TEMP 98.5; O2SAT 100
[2023-04-05 08:29] VITALS: BP 118/68; PULSE 71; RESP 20; TEMP 98.5; O2SAT 100
[2023-04-05] MEDS ORDERED: HYDROCHLOROTHIAZIDE 25 MG TAB PO SCH (09:00)
[2023-04-05] MEDS ORDERED: SOLIFENACIN SUCCINATE 5 MG TAB PO SCH (09:00)
[2023-04-05] MEDS ORDERED: FERROUS SULFATE 325 MG TAB PO SCH (09:00)
[2023-04-05] MEDS ORDERED: ASCORBIC ACID 500 MG TAB PO SCH (09:00)
[2023-04-05] MEDS ORDERED: FOLIC ACID 1 MG TAB PO SCH (09:00)
[2023-04-05] MEDS: SUCRALFATE 1 GM TAB PO SCH ×2 (09:16→11:30)
[2023-04-05] MEDS: POTASSIUM CHLORIDE 10MEQ EA PO SCH (09:18)
[2023-04-05] MEDS: OXYBUTYNIN CHLORIDE 5 MG TAB PO SCH (09:18)
[2023-04-05] MEDS: ONDANSETRON HCL INJ 2MG/ML 2ML 2 MG/ML VIAL IV PRN (09:23)
[2023-04-05] MEDS ORDERED: DITROPAN XL5 MG PO (11:47)
[2023-04-05] MEDS ORDERED: PYRIDIUM200 MG PO (11:48)
[2023-04-05] MEDS ORDERED: ceftin PO (11:49)
[2023-04-05] MEDS ORDERED: ACETAMIN-CODE12.5 ML PO (11:57)
[2023-04-05 12:13] VITALS: BP 131/81; PULSE 110; RESP 20; TEMP 97.6; O2SAT 99
== END 2023-04-05 12:32 | disposition home or self-care (01) ==
LOC: ER 20:15 → ERHOLD 21:09 → MED/SURG3 04-04 02:51
PROVIDERS: ADMIT Internal Medicine; ATTEND Internal Medicine
DX: N13.2 Hydronephrosis with renal and ureteral calculous obstruction (principal); N39.0 Urinary tract infection, site not specified; N81.10 Cystocele, unspecified; N36.41 Hypermobility of urethra; N81.6 Rectocele; N95.2 Postmenopausal atrophic vaginitis; G47.33 Obstructive sleep apnea (adult) (pediatric); K21.9 Gastro-esophageal reflux disease without esophagitis; D64.9 Anemia, unspecified; Z20.822 Contact with and (suspected) exposure to COVID-19
CPT/HCPCS: 0223U; 36415; 52332; 52352; 74420; 80048; 81001; 85025; 85610; 85730; 87086; 88300; 99284; C1758; C1769; C1874; C9113 ×2; G0378 ×3; J0131; J0696 ×2; J1100; J2001; J2270 ×2; J2405 ×2; J2704; J3010